=== PATIENT | male | born 1945 | race Two or more races ===

== ENCOUNTER 2018-06-26 16:51 | Inpatient (IN) | payer MEDICAID ==
[~2018-06-26] VITALS: Ht 172.7 cm; Wt 49.4 kg
[2018-06-26] VITALS (9 sets, daily range): BP systolic 102–166; BP diastolic 65–111
--- NOTE | 2018-06-26 16:51 | NUR ---
MARIE 41 FROM HOME C/O CHOKING WHILE EATING PIZZA, SPO2=78% ON RA, TO ER BED 8, HOOKED TO RECENTERER, CHANGED TO RT RENETTA AT BEDSIDE, DR PERALTA AT BEDSIDE.
[2018-06-26 17:17] LABS: BASOPHILS % (AUTO) 0.6 % (0.0-2.0); EOSINOPHILS % (AUTO) 3.1 % (0.0-6.0); HEMATOCRIT 39 % (39-51); LYMPHOCYTES # (AUTO) 1.2 /CMM (0.8-4.8); LYMPHOCYTES % (AUTO) 20.1 % (20.0-44.0); MEAN CORPUSCULAR HGB CONC 33 g/dl (31.0-36.0); MEAN CORPUSCULAR VOLUME 92 fL (80-96); MONOCYTES # (AUTO) 0.3 /CMM (0.1-1.30); MONOCYTES % (AUTO) 5.6 % (2.0-12.0); NEUTROPHILS # (AUTO) 4.1 /CMM (1.8-8.9); NEUTROPHILS % (AUTO) 70.6 % (43.0-81.0); PLATELET COUNT (AUTO) 234 /CMM (150-450); RED BLOOD CELL COUNT(AUTO) 4.28 MIL/uL (4.5-6.0); WHITE BLOOD COUNT (AUTO) 5.8 K/uL (4.3-11.0)
[2018-06-26 17:29] LABS: CALCIUM, SERUM 9.2 mg/dL (8.5-10.1); CREATININE 0.7 mg/dL (0.6-1.3); POTASSIUM 3.5 mmol/L (3.5-5.1)
[2018-06-26] MEDS ORDERED: IPRATROPIUM NEB FS 0.5 MG/2.5 ML AMPUL.NEB NEB ONE (17:30)
[2018-06-26] MEDS ORDERED: methylPREDNISolone SOD SUCC 125 MG/2ML VIAL IV ONE (17:30)
[2018-06-26] MEDS ORDERED: ONDANSETRON HCL/PF 4 MG/2 ML VIAL IVP ONE (17:30)
[2018-06-26] MEDS ORDERED: ALBUTEROL FS 2.5 MG/3 ML VIAL.NEB CONTNEB ONE (17:30)
[2018-06-26] MEDS ORDERED: IV NS 0.9% 1,000 ML BAG IV ONE (17:30)
[2018-06-26] MEDS ORDERED: IPRATROPIUM NEB FS 0.5 MG/2.5 ML AMPUL.NEB ONE (17:31)
[2018-06-26] MEDS ORDERED: ALBUTEROL FS 2.5 MG/3 ML VIAL.NEB ONE (17:31)
[2018-06-26] MEDS ORDERED: ONDANSETRON HCL/PF 4 MG/2 ML VIAL ONE (17:32)
[2018-06-26] MEDS ORDERED: methylPREDNISolone SOD SUCC 125 MG/2ML VIAL ONE (17:32)
[2018-06-26 17:34] LABS: ALBUMIN 3.6 g/dL (3.4-5.0); BILIRUBIN,DIRECT 0.1 mg/dL (0.0-0.2); BILIRUBIN,TOTAL 0.4 mg/dL (0.2-1.0); TOTAL PROTEIN, SERUM 7.9 g/dL (6.4-8.2)
--- NOTE | 2018-06-26 17:55 | NUR ---
ONGOING BREATHING TX
--- NOTE | 2018-06-26 18:07 | NUR ---
PT KEPT ON REMOVING BREATHING TREATMENT. DESATURATING AT 50'S, MADE MD AWARE.
--- NOTE | 2018-06-26 18:09 | NUR ---
INTUBATION TIME OUT DONE.
--- NOTE | 2018-06-26 18:10 | NUR ---
ETOMIDATE 20MG AND Succinylcholine 100MG GIVEN IVP
--- NOTE | 2018-06-26 18:12 | NUR ---
PT FOUND ON BREATHING TX @ 6LPM. MD AND RN AT BEDSIDE. PT SHOWED SIGNS OF SEVERE RESP DISTRESS. PT ORALLY INTUBATED VIA ETT SZ 7.0 SECURED AT 22CM @ THE LIP. COLORMETRIC CO2 COLOR CHANGE CONFIRMED. BREATH SOUNDS ARE CLEAR BILATERALLY. PT IMMEDIATELY TRANSPORTED TO CT SCAN. PT PLACED ON [facility] VENT ON NOTED SETTINGS PER MD ORDERS. ABG TO BE TAKEN WITHIN 30 MINUTES OF BEING ON VENT. WILL CONTINUE TO MONITOR.
--- NOTE | 2018-06-26 18:12 | NUR ---
RT AT BEDSIDE BAGGING
--- NOTE | 2018-06-26 18:13 | NUR ---
PT INTUBATED BY DR PERALTA, 23@ THE LIP AND 7.0 ETT.
--- NOTE | 2018-06-26 18:14 | NUR ---
ETT MOVED TO 22 @ THE LIP BP 151/100 HR 130 O2 SAT 75%
[2018-06-26] MEDS ORDERED: IOHEXOL-350 100 ML VIAL IV ONE (18:19)
[2018-06-26] MEDS ORDERED: IV NS 0.9% 250 ML IV ONE (18:19)
[2018-06-26] MEDS ORDERED: CT SWABBABLE VALVE TRANS SET 1 EA INFUS.SET MC ONE (18:19)
[2018-06-26] MEDS ORDERED: PROPOFOL 100 ML ONE (18:20)
--- NOTE | 2018-06-26 18:30 | NUR ---
PT WHEELED OUT FOR CT PULMO ANGIOGRAM, RT AT BEDSIDE
[2018-06-26] MEDS ORDERED: PROPOFOL 10MG/ML 50ML 50 ML IV PRN (19:00)
[2018-06-26 19:05] LABS: APPEARANCE,URINE Clear (CLEAR); BILIRUBIN,URINE Negative (NEGATIVE); BLOOD, URINE Small Ery/uL (NEGATIVE); COLOR,URINE Yellow (YELLOW); KETONES,URINE Trace (NEGATIVE); LEUKOCYTE ESTERASE ,URINE Negative (NEGATIVE); NITRITE, URINE Negative (NEGATIVE); PROTEIN,URINE 30 mg/dl (NEGATIVE); UGLUCOSE Negative (NEGATIVE); UROBILINOGEN,URINE 0.2 EU/dL (0.2)
[2018-06-26 19:20] LABS: BACTERIA,URINE None seen /HPF (None Seen); SQUAMOUS EPITHELIAL CELL,UR Few /HPF (None Seen); WBC,URINE 0-2 /HPF (0-3)
--- NOTE | 2018-06-26 19:44 | NUR ---
PHYSICS TUTOR: SABINO BRENNER [phone]
--- NOTE | 2018-06-26 19:51 | NUR ---
REPORT GIVEN TO ELIANA WATERMAN FOR CHUY
[2018-06-26] MEDS ORDERED: ETOMIDATE 2 MG/ML VIAL IV ONE (20:01)
[2018-06-26] MEDS ORDERED: SUCCINYLCHOLINE CHLORIDE 20 MG/ML VIAL IV ONE (20:01)
--- NOTE | 2018-06-26 20:23 | NUR ---
REPORT GIVEN TO COLUMBA RIOJAS FOR CHUY
--- NOTE | 2018-06-26 20:25 | NUR ---
RECEIVED REPORT FROM ELIANA MARLOW RN FOR CONTINUITY OF CARE. AWAITING PT ARRIVAL.
--- NOTE | 2018-06-26 20:45 | NUR ---
RECEIVED PT IN NO ACUTE DISTRESS IN BED. PT IS OPENING EYES AND MOVING UPPER EXTREMITIES. PT IS ON PROPOFOL BUT STILL TRYING TO REACH FOR ETT. WILL TITRATE PROPOFOL AND REQUEST MAX DOSE OF 100MCG FROM NETWORK RELATIONS CONSULTANT PHYSICIAN. PT IS INTUBATED WITH ETT 7.0/22 AT THE LIP. PT IS ON MECHANICAL VENT AND TOLERATING VENT SETTING AT AC20, TV 350, FIO2 100%, PEEP 0. PT IS ON TELE WITH SR ON THE MONITOR. PT HAS F/C THAT IS CLEAN DRY INTACT AND PATENT WITH YELLOW URINE DRAINING. PT IS ON RESTRAINTS WITH POSITIVE PULSES ON ALL FOUR EXTREMITIES. PT HAS LFA 20G WITH PROPOFOL @ 40MCG AND LWRIST 20G THAT IS CLEAN DRY INTACT AND PATENT WITH SALINE FLUSH. BED IN LOW LOCK POSITION WITH RIALS UP X 2. CALL LIGHT WITHIN REACH AND ALL SAFETY MEASURES ENSURED AND CARRIED OUT. WILL CONTINUE TO MONITOR PT.
--- NOTE | 2018-06-26 20:50 | NUR ---
NOTIFIED DR. FARR ABOUT PT INCREASE IN AGITATION AND REQUESTED INCREASE IN PROPOFOL TO MAX 100 MCG. RECEIVED ORDERS TO INCREASE PORPOFOL TO MAX 100MCG NEEDED. READ BACK ORDERS PERFORMED AND CARRIED OUT.
[2018-06-26] MEDS: PROPOFOL 100 ML IV PRN ×2 (20:54→23:07)
[2018-06-26] MEDS ORDERED: Z GUARD REMEDY 2 OZ OINT TP PRN (21:00)
[2018-06-26] MEDS ORDERED: PROPOFOL 1,000 MG/100 ML BOTTLE IV ONE (21:00)
[2018-06-26] MEDS ORDERED: ONDANSETRON HCL/PF 4 MG/2 ML VIAL IVP PRN (21:00)
[2018-06-26] MEDS ORDERED: ACETAMINOPHEN 650 MG/SUPP.RECT RC PRN (21:00)
[2018-06-26] MEDS ORDERED: HYDROMORPHONE 1 MG/1 ML DISP.SYRIN IV PRN (21:00)
[2018-06-26 21:19] LABS: ABG BASE EXCESS -5.3 mmol/L; ABG OXYGEN SATURATION 99.3 % (92.0-98.5); ABG PCO2 37.5 mmHg (35.0-45.0); ABG PH 7.342 (7.350-7.450); ABG PO2 463.6 mmHg (75.0-100.0); AaDO2 211.9 mmHg; COHb 0.2 % (0.5-1.5); MetHb 0.5 % (0.0-1.5); O2Hb 98.6 % (94.0-97.0); PEEP,BG 5 cm H2O; SITE, ABG Left Radial; VT, ABG 350 mL
[2018-06-26] MEDS ORDERED: CEFTRIAXONE 1 G VIAL ONE (21:22)
[2018-06-26] MEDS: IV D5/0.45 NACL 1,000 ML IV PRN (21:24)
[2018-06-26] MEDS: CEFTRIAXONE 1 G in IV D5W 50 ML IV SCH (21:24)
[2018-06-26] MEDS: ENOXAPARIN SODIUM 40 MG/0.4 ML DISP.SYRIN SQ SCH (21:25)
--- NOTE | 2018-06-26 22:00 | NUR ---
PROPOFOL INCREASED TO 60 MCG DUE TO PT AGITATION WITH INCREASED RESPIRATIONS TO 30 AND PT TRYING TO REACH FOR ETT WHILE ON RESTRAINTS.
[2018-06-26] MEDS: METRONIDAZOLE 500MG/ NS 100ML 500 MG in PREMIX 1 EA IV SCH (23:18)
[2018-06-27] VITALS (47 sets, daily range): BP systolic 84–161; BP diastolic 54–99
[2018-06-27] MEDS: PROPOFOL 100 ML IV PRN ×3 (04:11→17:24)
[2018-06-27 04:33] LABS: HEMATOCRIT 34 % (39-51); HEMOGLOBIN 11.5 g/dL (13.5-17.5); LYMPHOCYTES # (AUTO) 0.6 /CMM (0.8-4.8); LYMPHOCYTES % (AUTO) 8.6 % (20.0-44.0); MEAN CORPUSCULAR HGB CONC 33 g/dl (31.0-36.0); MEAN CORPUSCULAR VOLUME 92 fL (80-96); MONOCYTES # (AUTO) 0.1 /CMM (0.1-1.30); MONOCYTES % (AUTO) 0.8 % (2.0-12.0); NEUTROPHILS # (AUTO) 6.6 /CMM (1.8-8.9); NEUTROPHILS % (AUTO) 90.6 % (43.0-81.0); PLATELET COUNT (AUTO) 194 /CMM (150-450); RED BLOOD CELL COUNT(AUTO) 3.76 MIL/uL (4.5-6.0); WHITE BLOOD COUNT (AUTO) 7.3 K/uL (4.3-11.0)
[2018-06-27 04:46] LABS: CALCIUM, SERUM 8.3 mg/dL (8.5-10.1); MAGNESIUM 1.7 mg/dL (1.8-2.4); POTASSIUM 4.1 mmol/L (3.5-5.1)
[2018-06-27 04:54] LABS: THYROID STIMULATING HORMONE 0.358 uIU/mL (0.358-3.74)
[2018-06-27] MEDS: METRONIDAZOLE 500MG/ NS 100ML 500 MG in PREMIX 1 EA IV SCH ×3 (05:12→12:22)
--- NOTE | 2018-06-27 07:24 | NUR ---
PT REMAINS IN NO ACUTE DISTRESS IN BED. PT DID NOT HAVE ANY SIGNIFICANT CHANGE IN CONDITION DURING SHIFT. PT TOLERATED VENT SETTING WELL. ALL NEEDS MET, ALL ORDERS CARRIED OUT. WILL ENDORSE CARE TO AM RN FOR CONTINUITY OF CARE.
--- NOTE | 2018-06-27 07:30 | NUR ---
INITIAL: RECEIVED PT IN NO ACUTE DISTRESS IN BED. PT ON VENTILATOR # 7 ET-TUBE @ 22 BY THE LIP. PT CALM VITAL SIGNS STABLE WILL TITRATE PROPOFOL AND REQUEST FOR MAX DOSE OF 100MCG FROM CITY AUDITOR PHYSICIAN WILL BE FOLLOWED UP ON. PT IS ON MECHANICAL VENT AND TOLERATING VENT SETTING AT AC20, TV 350, FIO2 100%, PEEP +5. PT IS ON TELE WITH SB (53) ON THE MONITOR. PT HAS F/C THAT IS CLEAN DRY INTACT AND PATENT WITH YELLOW URINE DRAINING. PT IS ON RESTRAINTS WITH POSITIVE PULSES ON ALL FOUR EXTREMITIES. PT HAS LFA 20G WITH PROPOFOL @ 55 MCG AND LEFT WRIST 20G THAT IS CLEAN DRY INTACT AND PATENT WITH SALINE FLUSH. BED IN LOW LOCK POSITION WITH RIALS UP X 2. CALL LIGHT WITHIN REACH AND ALL SAFETY MEASURES ENSURED AND CARRIED OUT. WILL CONTINUE TO MONITOR PT.
[2018-06-27] MEDS: PANTOPRAZOLE 40 MG VIAL IV SCH (09:08)
[2018-06-27] MEDS: IV D5/0.45 NACL 1,000 ML IV PRN (10:09)
[2018-06-27] MEDS: Magnesium 1GM/D5W 100ML PREMIX 100 ML IV SCH ×2 (10:09→10:57)
--- NOTE | 2018-06-27 11:48 | NUR ---
RT NOTE PT MECHANICALLY VENTILATED VIA 7.0 ETT 22 CM AT LIP. CUFF INFLATED. ETT MIDLINE AND SECURE. VENTILATOR SETTINGS PRESCRIBED. ALARMS SET PER PROTOCOL AND AUDIBLE. VENT PLUGGED IN TO RED OUTLET. AMBU BAG AT BED SIDE. NO DISTRESS NOTED AT MOMENT. Addendum: 06/27/18 at 1150 by NEIL KERN RT Amended: Links added.
--- NOTE | 2018-06-27 18:20 | NUR ---
CLOSING PT REMAINS IN NO ACUTE DISTRESS IN BED. PT DID NOT HAVE ANY SIGNIFICANT CHANGE IN CONDITION DURING SHIFT. PT TOLERATED VENT SETTING WELL.ABLE TO WEAN PROPAFOL ALL NEEDS MET, ALL ORDERS CARRIED OUT. WILL ENDORSE CARE TO PM RN FOR CONTINUITY OF CARE.
--- NOTE | 2018-06-27 19:00 | NUR ---
RECEIVED PT IN NO ACUTE DISTRESS IN BED. PT IS SEDATED. PT IS INTUBATED WITH ETT 7.0/22 AT THE LIP. PT IS ON MECHANICAL VENT AND TOLERATING VENT SETTING AT AC 16, TV 350, FIO2 40%, PEEP 5. PT IS ON TELE WITH SB ON THE MONITOR. PT HAS F/C THAT IS CLEAN DRY INTACT AND PATENT WITH YELLOW URINE DRAINING. PT IS ON RESTRAINTS WITH POSITIVE PULSES ON ALL FOUR EXTREMITIES. PT HAS LFA 20G WITH PROPOFOL @ 40MCG AND LWRIST 20G THAT IS CLEAN DRY INTACT AND PATENT WITH SALINE FLUSH. BED IN LOW LOCK POSITION WITH RIALS UP X 2. CALL LIGHT WITHIN REACH AND ALL SAFETY MEASURES ENSURED AND CARRIED OUT. WILL CONTINUE TO MONITOR PT.
[2018-06-27] MEDS: CEFTRIAXONE 1 G in IV D5W 50 ML IV SCH (21:45)
[2018-06-27] MEDS: ENOXAPARIN SODIUM 40 MG/0.4 ML DISP.SYRIN SQ SCH (21:46)
[2018-06-28] VITALS (55 sets, daily range): BP systolic 80–176; BP diastolic 49–89
[2018-06-28] MEDS: METRONIDAZOLE 500MG/ NS 100ML 500 MG in PREMIX 1 EA IV SCH ×4 (00:09→17:42)
[2018-06-28] MEDS: PROPOFOL 100 ML IV PRN ×2 (00:27→11:23)
[2018-06-28] MEDS: IV D5/0.45 NACL 1,000 ML IV PRN ×2 (04:01→21:15)
[2018-06-28 05:46] LABS: BASOPHILS % (AUTO) 0.2 % (0.0-2.0); EOSINOPHILS % (AUTO) 0.9 % (0.0-6.0); HEMATOCRIT 35 % (39-51); HEMOGLOBIN 11.7 g/dL (13.5-17.5); LYMPHOCYTES # (AUTO) 1.7 /CMM (0.8-4.8); LYMPHOCYTES % (AUTO) 19.6 % (20.0-44.0); MEAN CORPUSCULAR HGB CONC 33 g/dl (31.0-36.0); MEAN CORPUSCULAR VOLUME 93 fL (80-96); MONOCYTES # (AUTO) 0.6 /CMM (0.1-1.30); MONOCYTES % (AUTO) 6.7 % (2.0-12.0); NEUTROPHILS # (AUTO) 6.3 /CMM (1.8-8.9); NEUTROPHILS % (AUTO) 72.6 % (43.0-81.0); PLATELET COUNT (AUTO) 184 /CMM (150-450); WHITE BLOOD COUNT (AUTO) 8.7 K/uL (4.3-11.0)
[2018-06-28 05:58] LABS: CALCIUM, SERUM 8.2 mg/dL (8.5-10.1); CREATININE 0.8 mg/dL (0.6-1.3); MAGNESIUM 2.2 mg/dL (1.8-2.4); PHOSPHORUS 2.5 mg/dL (2.5-4.9); POTASSIUM 3.9 mmol/L (3.5-5.1)
--- NOTE | 2018-06-28 07:59 | NUR ---
INITIAL ASL INTERPRETER NOTE RCVD PT SEDATED ON DIPRIVAN, INTUBATED 7.0 22 AT LIP LINE. BILATERAL SOFT WRIST RESTRAINTS IN PLACE. CIRCULATION CHECKS DONE. SB ON MONITOR. INMAN TO GRAVITY DRAINING YELLOW URINE. IV SITES C/D/I/PATENT, NO S/O INFILTRATION/PHLEBITIS OBSERVED, IVF AND DIPRIVAN INFUSING ORDERED. PT APPEARS TO FOLLOW COMMANDS WILL CONTINUE TO ASSESS DURING SEDATION VACATION. WILL CONTINUE TO MONITOR PT FOR SAFETY AND COMFORT. BED IN LOW AND LOCKED POSITION. CALL LIGHT WITHIN REACH. HEAD OF BED ELEVATED.
[2018-06-28] MEDS: PANTOPRAZOLE 40 MG VIAL IV SCH (08:06)
[2018-06-28 08:30] LABS: ABG BASE EXCESS -2.1 mmol/L; ABG OXYGEN SATURATION 98.5 % (92.0-98.5); ABG PCO2 37.7 mmHg (35.0-45.0); ABG PH 7.393 (7.350-7.450); ABG PO2 161.3 mmHg (75.0-100.0); AaDO2 80.5 mmHg; COHb 0.3 % (0.5-1.5); MetHb 0.7 % (0.0-1.5); O2Hb 97.5 % (94.0-97.0); PEEP,BG 5 cm H2O; SITE, ABG Right Radial; VENT MODE, BG AC 16 350 40% +5; VT, ABG 350 mL
--- NOTE | 2018-06-28 09:04 | NUR ---
SEDATION VACATION NOTE PT ABLE TO ACKNOWLEDGE INFORMATION AND FOLLOW SIMPLE COMMANDS SUCH SQUEEZE HAND AND OPEN EYES TO COMMAND. PT APPEARS COMFORTABLE WITH LIGHT SEDATION, WILL CONTINUE TO MONITOR.
--- NOTE | 2018-06-28 12:37 | NUR ---
TOUR DRIVER NOTE DR. DAVIS IN UNIT UPDATED ON PT'S CONDITION. RECOMMENDED TO START WEANING. RT CALLED PT TO BE PLACED ON CPAP MODE PSV 10 PEEP 5 AND GET ABG IN 2 HRS. WILL CONTINUE TO MONITOR PT. PT'S DAUGHTER WAS CALLED TO UPDATE ON PT'S CONDITION AND TO HAVE HER SPEAK TO PT REGARDING WEANING PROCESS.
--- NOTE | 2018-06-28 12:55 | NUR ---
PT PLACED ON CPAP MODE PER DR. ANWAR. [place] IN 2 HOURS. Addendum: 06/28/18 at 1303 by LUANA BRYANT RT Amended: Links added.
[2018-06-28 14:34] LABS: ABG BASE EXCESS -2.2 mmol/L; ABG OXYGEN SATURATION 98.5 % (92.0-98.5); ABG PCO2 35.5 mmHg (35.0-45.0); ABG PH 7.409 (7.350-7.450); ABG PO2 174.1 mmHg (75.0-100.0); AaDO2 70.3 mmHg; COHb 0.3 % (0.5-1.5); MetHb 0.6 % (0.0-1.5); O2Hb 97.6 % (94.0-97.0); PEEP,BG 5 cm H2O; SITE, ABG Right Radial; VENT MODE, BG CPAP
--- NOTE | 2018-06-28 14:51 | NUR ---
PT EXTUBATED PER DR. DAVIS ORDERS. RN BETO AT BEDSIDE DURING EXTUBATION. PT HAS SEMI-PRODUCTIVE COUGH, SATURATING 100% ON 3LPM NASAL CANNULA. NO RESP. DISTRESS NOTED. NO STRIDOR PRESENT.
[2018-06-28] MEDS: AZITHROMYCIN 500 MG in IV D5W 250 ML IV SCH (16:22)
[2018-06-28] MEDS: hydrALAZINE HCL IV 20 MG VIAL IV PRN (17:41)
--- NOTE | 2018-06-28 18:36 | NUR ---
CUSTOMS COMPLIANCE MANAGER NOTE PT REMAINS STABLE, NON-VERBAL (BASELINE) EXTUBATED, ON RA TOLERATING WELL. SR ON MONITOR. INMAN TO GRAVITY DRAINING CLEAR, GREEN TINGED URINE. IV SITES REMAIN C/D/I/PATENT. NO S/O INFILTRATION/PHLEBITIS OBSERVED UPON FLUSHING. PT'S CARE WILL BE ENDORSED TO DEVELOPMENT CHEMIST RN FOR CONTINUITY OF CARE. BED IN LOW AND LOCKED POSITION. CALL LIGHT WITHIN REACH. HEAD OF BED ELEVATED. EARLIER THIS PM PT'S SBP OVER 160 ADAM, LIQUEFACTION PLANT OPERATOR NOTIFIED RCVD ORDER TO GIVE HYDRALAZINE IVP. THIS WAS ADMINISTERED ORDERED WITH IMPROVEMENT ON PT'S SBP. PER PT'S DAUGHTER PT DOES NOT TAKE ANY BP MEDICATIONS AT HOME.
--- NOTE | 2018-06-28 20:00 | NUR ---
Received patient awake non verbal follows simple commands.Respiration even and unlabored.Cough at times but unable to expectorate phlegm.Suctioned secretions PRN.O2 2L NC on but sometimes remove it.No respiratory distress noted.SR per monitor.Remain on NPO status pending swallow eval. With IVF infusing well and site intact.FC to gravity drainage with moderate yellow urine.Turned and repositioned.Safety precaution observed with call light within easy reach.Continue monitoring.
[2018-06-28] MEDS: CEFTRIAXONE 1 G in IV D5W 50 ML IV SCH (21:00)
[2018-06-28] MEDS: ENOXAPARIN SODIUM 40 MG/0.4 ML DISP.SYRIN SQ SCH (21:01)
[2018-06-29] VITALS (25 sets, daily range): BP systolic 119–161; BP diastolic 61–92
--- NOTE | 2018-06-29 | NUR ---
Patient resting .VS stable.SB 50's.Remains NPO with IVF infusing well.Denies pain.No BM noted. Moderate urine output.Continue monitoring.
[2018-06-29 04:46] LABS: BASOPHILS % (AUTO) 0.5 % (0.0-2.0); EOSINOPHILS % (AUTO) 0.8 % (0.0-6.0); HEMATOCRIT 37 % (39-51); HEMOGLOBIN 12.2 g/dL (13.5-17.5); LYMPHOCYTES # (AUTO) 1.2 /CMM (0.8-4.8); LYMPHOCYTES % (AUTO) 16.8 % (20.0-44.0); MEAN CORPUSCULAR HGB CONC 34 g/dl (31.0-36.0); MEAN CORPUSCULAR VOLUME 91 fL (80-96); MONOCYTES # (AUTO) 0.4 /CMM (0.1-1.30); MONOCYTES % (AUTO) 5.5 % (2.0-12.0); NEUTROPHILS # (AUTO) 5.6 /CMM (1.8-8.9); NEUTROPHILS % (AUTO) 76.4 % (43.0-81.0); PLATELET COUNT (AUTO) 193 /CMM (150-450); WHITE BLOOD COUNT (AUTO) 7.3 K/uL (4.3-11.0)
[2018-06-29 05:01] LABS: CALCIUM, SERUM 7.9 mg/dL (8.5-10.1); CREATININE 0.7 mg/dL (0.6-1.3); POTASSIUM 3.1 mmol/L (3.5-5.1)
[2018-06-29] MEDS: METRONIDAZOLE 500MG/ NS 100ML 500 MG in PREMIX 1 EA IV SCH ×5 (06:03→17:06)
--- NOTE | 2018-06-29 06:35 | NUR ---
AM care done.Oral care done.Resting in bed appears comfortable.No significant change noted during the shift.Will endorse to day shift RN for continuity of care.
--- NOTE | 2018-06-29 07:30 | NUR ---
STEM ROLLER OR CRUSHER OPERATOR INITIAL NOTES: Received pt from nightshift RN in stable condition. Pt is alert however nonverbal. Pt able to make his needs known through writing aid at bedside and gestures. He denies any pain at this time. No SOB noted. Pt sating at 96% on 2L VIA NC. IVs to left fa and wrist noted to be C/D/I. No redness or signs of infiltration noted upon flushing. Bed in low locked position, side rails up c2, call light within reach, bed alarm on. Will continue to monitor.
[2018-06-29] MEDS: PANTOPRAZOLE 40 MG VIAL IV SCH (08:21)
[2018-06-29] MEDS: POTASSIUM CL. PREMIX PERIPHER. 50 ML IV SCH ×4 (09:22→12:45)
[2018-06-29] MEDS: IV D5/0.45 NACL 1,000 ML IV PRN (09:22)
[2018-06-29] MEDS: hydrALAZINE HCL IV 20 MG VIAL IV PRN (11:47)
--- NOTE | 2018-06-29 13:06 | NUR ---
COUNTY DEMONSTRATOR NOTES: MD ROUNDING (DR. ADAMS)/ SWALLOW EVAL 1250: DR. ADAMS AT BEDSIDE AND UPDATED ON PT'S CURRENT CONDITION. MD MADE AWARE THAT PT HAS YET TO BE ASSESSED BY SPEECH THERAPIST. PER MD "DO A NURSING SWALLOW EVAL WITH ICE CHIPS, IF PT IS ABLE TO TOLERATE IT, THEN ADVANCE HIS DIET" 1300: EVAL COMPLETED BY CHARGE NURSE. PT ABLE TO TOLERATE ICE CHIPS WITH NO RESPIRATORY DISTRESS OR SIGNS OF ASPIRATION. DIET ADVANCED TO PUREE
[2018-06-29] MEDS: AZITHROMYCIN 500 MG in IV D5W 250 ML IV SCH (15:34)
--- NOTE | 2018-06-29 18:50 | NUR ---
COMBAT SYSTEMS OPERATORWILDLIFE PROTECTOR NOTES PT TRANSFERRED TO TELE ROOM 327-1 VIA [facility]. REPORT CALLED AND GIVEN TO TRACIE THE RECEIVING RN. ALL BELONGINGS AND MEDICATIONS TAKEN WITH PT. VSS. PERIPHERAL IVS REMAIN PATENT AND INTACT.
--- NOTE | 2018-06-29 18:50 | NUR ---
RECEIVED PT FROM ICU (REPORT GIVEN BY AFSATU) . A/O X2, NON-VERBAL. VS ARE STABLE AND WITH IN NORMAL RANGE, 2 IV ASSESS PRESENT, FLUSHING WELL. NO SKIN ISSUES, PT HAS R SITED WEAKNESS, ASPIRATION PRECAUTIONS IN PLACE. WILL ENDORSE TO NEXT SHIFT FOR CHUY.
--- NOTE | 2018-06-29 20:00 | NUR ---
RN NOTES PATIENT IS ALERT AND ORIENTED TO SELF ONLY, NO TAIWANESE, NON-VERBAL, POINTS TO TAIWANESE ALPHABETS AND MAORI CHARACTERS AND GESTURES TO COMMUNICATE. ASPIRATION PRECAUTION, KEPT HOB ELEVATED, DRINKS WATER USING SPOON AND WITH CAUTION.
[2018-06-29] MEDS: CEFTRIAXONE 1 G in IV D5W 50 ML IV SCH (21:01)
[2018-06-29] MEDS: ENOXAPARIN SODIUM 40 MG/0.4 ML DISP.SYRIN SQ SCH (21:12)
[2018-06-30] MEDS: METRONIDAZOLE 500MG/ NS 100ML 500 MG in PREMIX 1 EA IV SCH ×5 (00:41→23:01)
[2018-06-30 00:51] VITALS: BP 146/87
[2018-06-30] MEDS: IV D5/0.45 NACL 1,000 ML IV PRN (06:11)
--- NOTE | 2018-06-30 06:17 | NUR ---
RN NOTES PATIENT HAD RAPID RESPONSE DUE TO DESATURATION SPO2 AT 5LPM VIA NC 81%, WITH SBP OF 80, BG OF 80 MG/DL, PATIENT IS ALERT AND ORIENTED X3, NO LOSS OF CONSCIOUSNESS, DENIES PAIN, PERIPHERAL IV DISLODGED AND UNABLE TO RESTART DUE TO POOR VEIN VISIBILITY. PATIENT RESPONDED WELL WITH NS BOLUS OF 500 CC AND NON REBREATHER MASK AT 10 LPM, PER POC, PROCEED WITH COLONOSCOPY, WILL DECIDE IF PATIENT CAN GO BACK TO [place] OR GO TO A HIGHER LEVEL OF CARE SINCE PATIENT CHANGED POLST FROM DNR TO FULL CODE. Addendum: 06/30/18 at 0621 by JITENDRA VERDUZCO RN PLEASE DISREGARD NOTES ABOVE, NOT FOR PATIENT
--- NOTE | 2018-06-30 06:21 | NUR ---
PATIENT IS ALERT AND ORIENTED X2, NON-VERBAL, NO CHANGE OF CONDITION, INMAN CATHETER DRAINING WELL, ALL IV ABX GIVEN.
[2018-06-30 07:06] LABS: BASOPHILS % (AUTO) 0.3 % (0.0-2.0); EOSINOPHILS % (AUTO) 1.4 % (0.0-6.0); HEMATOCRIT 39 % (39-51); HEMOGLOBIN 13.2 g/dL (13.5-17.5); LYMPHOCYTES # (AUTO) 1.1 /CMM (0.8-4.8); LYMPHOCYTES % (AUTO) 16.7 % (20.0-44.0); MEAN CORPUSCULAR HGB CONC 34 g/dl (31.0-36.0); MEAN CORPUSCULAR VOLUME 90 fL (80-96); MONOCYTES # (AUTO) 0.4 /CMM (0.1-1.30); MONOCYTES % (AUTO) 6.1 % (2.0-12.0); NEUTROPHILS # (AUTO) 5.1 /CMM (1.8-8.9); NEUTROPHILS % (AUTO) 75.5 % (43.0-81.0); PLATELET COUNT (AUTO) 214 /CMM (150-450); RED BLOOD CELL COUNT(AUTO) 4.32 MIL/uL (4.5-6.0); WHITE BLOOD COUNT (AUTO) 6.8 K/uL (4.3-11.0)
[2018-06-30 07:22] LABS: CALCIUM, SERUM 8.3 mg/dL (8.5-10.1); CREATININE 0.8 mg/dL (0.6-1.3); MAGNESIUM 1.8 mg/dL (1.8-2.4); PHOSPHORUS 2.3 mg/dL (2.5-4.9); POTASSIUM 3.3 mmol/L (3.5-5.1)
[2018-06-30 08:00] VITALS: BP 146/79
--- NOTE | 2018-06-30 08:30 | NUR ---
MS RN ASSUMED CARE ASSUMED CARE OVER PT. PT IS ALERT AND ORIENTED X1 AND NON-VERBAL. USES THAI AND LITHUANIAN CHARACTERS TO TRANSLATE. NO ACUTE DISTRESS NOTED AT THIS TIME. BREATHING IS EVEN AND UNLABORED ON ROOM AIR. PT HAS A LEFT WRIST #20G IV THAT IT INFUSING D5 1/2 NS @ 75ML/HR WITHOUT REDNESS OR SWELLING AND A LEFT FA #20G THAT IS SALINE LOCKED WITHOUT REDNESS OR SWELLING. INMAN CATHETER NOTED TO BE DRAINING DARK YELLOW, CLEAR URINE. ASPIRATION PRECAUTIONS MAINTAINED, PT IS PENDING SWALLOW EVAL. ALL NEEDS ATTENDED TO. BED IS LOCKED AND IN LOWEST POSITION, SIDE RAILS UP X3, BED ALARM ON, CALL LIGHT AND POSSESSIONS WITHIN REACH.
[2018-06-30] MEDS ORDERED: POTASSIUM CHLORIDE 20 MEQ POWDER PACKET NG SCH (09:30)
[2018-06-30] MEDS: PANTOPRAZOLE 40 MG VIAL IV SCH (09:56)
[2018-06-30] MEDS ORDERED: POTASSIUM PHOSPHATE MM 5 MMOL in IV D5W 100 ML IV SCH (10:30)
[2018-06-30] MEDS: Potassium Phosphate meq 11 MEQ in IV D5W 100 ML IV SCH ×2 (11:29→14:46)
--- NOTE | 2018-06-30 12:30 | NUR ---
MS RN NOTE LEFT FA PERIPHERAL IV FOUND TO BE LEAKING AND PAINFUL WHEN FLUSHED. REMOVED WITH CATHETER TIP INTACT. NEW IV STARTED AT THE LEFT UPPER FA #24G AND IS PATENT, CLEAN, DRY AND INTACT. LEFT WRIST IV STILL INTACT.
[2018-06-30 16:00] VITALS: BP 145/76
--- NOTE | 2018-06-30 16:15 | NUR ---
MS RN NOTE SPOKE WITH RIM FIRE PRIMING TOOL SETTER REGARDING AZITHROMYCIN IV. PER TECH, THE PHARMACIST IS CURRENTLY IN A CODE RIGHT NOW BUT THEY WILL FOLLOW UP SHORTLY AND SEND UP THE MEDICATION.
[2018-06-30] MEDS ORDERED: BARIUM SULFATE 148 GM SUSP.RECON PO ONE (16:18)
[2018-06-30] MEDS ORDERED: BARIUM SULFATE 240 ML ORAL.SUSP PO ONE (16:18)
--- NOTE | 2018-06-30 17:15 | NUR ---
MS RN NOTE FLAGYL AND AZITHROMYCIN IV STILL UNAVAILABLE, PER PHARMACY THEY ARE ABLE TO SEND AZITHROMYCIN UP SHORTLY. WAITING FOR ARRIVAL.
[2018-06-30] MEDS: AZITHROMYCIN 500 MG in IV D5W 250 ML IV SCH (17:24)
--- NOTE | 2018-06-30 18:30 | NUR ---
MS RN NOTE PER JONATHAN HE WILL SEND UP FLAGYL IV SHORTLY.
--- NOTE | 2018-06-30 18:48 | NUR ---
MS RN CLOSING NOTE PT IN BED, SLEEPING AND EASILY AROUSABLE. PT IS ALERT AND ORIENTED X1 AND NON-VERBAL. USES PASHTO AND CANADIAN CHARACTERS TO TRANSLATE. NO ACUTE DISTRESS NOTED AT THIS TIME. BREATHING IS EVEN AND UNLABORED ON ROOM AIR. PT HAS A LEFT WRIST #20G IV THAT IT INFUSING D5 1/2 NS @ 75ML/HR WITHOUT REDNESS OR SWELLING AND A LEFT FA #24G THAT IS SALINE LOCKED WITHOUT REDNESS OR SWELLING. INMAN CATHETER NOTED TO BE DRAINING DARK YELLOW, CLEAR URINE. ASPIRATION PRECAUTIONS AND NPO STATUS MAINTAINED. ADLS PROVIDED AND PT TURNED AND REPOSITION Q2H FOR THE DURATION OF THE SHIFT. ALL NEEDS ATTENDED TO. BED IS LOCKED AND IN LOWEST POSITION, SIDE RAILS UP X3, BED ALARM ON, CALL LIGHT AND POSSESSIONS WITHIN REACH. WILL ENDORSE TO LIFE INSURANCE SALES NURSE FOR CONTINUITY OF CARE.
--- NOTE | 2018-06-30 19:00 | NUR ---
RN MS OPENING NOTES RECEIVED PATIENT IN BED AWAKE ALERT AND ORIENTED X 2 ,NON VERBAL HOWEVER ABLE TO COMMUNICATE VIA LETTER BOARD. ABLE TO MAKE NEEDS KNOWN VIA BOARD AND POINTING, RESPIRATIONS EVEN AND UNLABORED WITH EQUAL RISE AND FALL OF CHEST, DENIES ANY PAIN OR DISCOMFORT AT THIS TIME, PATIENT IS NPO STATUS AND AWARE , ASPIRATION PRECAUTIONS RENDERED, INMAN CATHETER IN TACT AND DRAINING WELL, URINE YELLOW, CLEAR, IV SITE TO LEFT FA #24 INTACT AND PATENT AND LEFT WRIST #20 INTACT AND PATENT NO REDNESS, NO INFILTRATION PRESENT IVF RUNNING ORDERED. SAFETY PRECAUTIONS IN PLACE,LOW BED AND LOCKED, BED ALARM IN PLACE ,ORIENTED TO STAFF AND CALL LIGHT AND KEPT WITHIN REACH, REPOSITIONING OFFERED, ALL NEEDS ATTENDED AT THIS TIME, REMAINS COMFORTABLE WILL CONTINUE TO MONITOR AND ADDRESS NEEDS.
[2018-06-30 20:00] VITALS: BP 154/82
[2018-06-30] MEDS: ENOXAPARIN SODIUM 40 MG/0.4 ML DISP.SYRIN SQ SCH (21:27)
[2018-06-30] MEDS: CEFTRIAXONE 1 G in IV D5W 50 ML IV SCH (21:27)
[2018-07-01] MEDS: METRONIDAZOLE 500MG/ NS 100ML 500 MG in PREMIX 1 EA IV SCH ×3 (05:15→17:09)
--- NOTE | 2018-07-01 06:55 | NUR ---
RN MS CLOSING NOTES PATIENT IN BED AWAKE ALERT AND ORIENTED X 2 ,NON VERBAL HOWEVER ABLE TO COMMUNICATE VIA LETTER BOARD. ABLE TO MAKE NEEDS KNOWN VIA BOARD AND POINTING, RESPIRATIONS EVEN AND UNLABORED WITH EQUAL RISE AND FALL OF CHEST, DENIES ANY PAIN OR DISCOMFORT AT THIS TIME, PATIENT IS NPO STATUS AND AWARE , ASPIRATION PRECAUTIONS RENDERED, INMAN CATHETER IN TACT AND DRAINING WELL, URINE YELLOW, CLEAR 900ML OUTPUT, IV SITE TO LEFT FA #24 INTACT AND PATENT AND LEFT WRIST #20 INTACT AND PATENT NO REDNESS, NO INFILTRATION PRESENT IVF RUNNING ORDERED. SAFETY PRECAUTIONS IN PLACE,LOW BED AND LOCKED, BED ALARM IN PLACE , CALL LIGHTKEPT WITHIN REACH, REPOSITIONING OFFERED, ALL NEEDS ATTENDED AT THIS TIME, REMAINS COMFORTABLE WILL CONTINUE TO MONITOR AND ADDRESS NEED AND ENDORSE TO NEXT SHIFT.
--- NOTE | 2018-07-01 07:30 | NUR ---
RN OPENING NOTES PT AWAKE AND RESTING IN BED. PT NONVERBAL, BUT ABLE TO MAKE NEEDS KNOWN. PT HAS A INMAN CATHETER INTACT AND DRAINING WELL. PT HAS A LEFT FA #24 AND LEFT WRIST #20 RUNNING D51/2NS @75ML/HR, PT TOLERATING WELL. SAFETY PRECAUTIONS IN PLACE, BED IN LOWEST LOCKED POSITION, X2 SIDE RAILS UP AND CALL LIGHT WITHIN REACH. WILL CONTINUE TO MONITOR.
[2018-07-01 08:00] VITALS: BP 146/77
[2018-07-01 08:18] LABS: BASOPHILS % (AUTO) 0.4 % (0.0-2.0); EOSINOPHILS % (AUTO) 5.3 % (0.0-6.0); HEMATOCRIT 37 % (39-51); HEMOGLOBIN 12.6 g/dL (13.5-17.5); LYMPHOCYTES # (AUTO) 1.1 /CMM (0.8-4.8); LYMPHOCYTES % (AUTO) 18.1 % (20.0-44.0); MEAN CORPUSCULAR HGB CONC 34 g/dl (31.0-36.0); MEAN CORPUSCULAR VOLUME 89 fL (80-96); MONOCYTES # (AUTO) 0.5 /CMM (0.1-1.30); MONOCYTES % (AUTO) 7.9 % (2.0-12.0); NEUTROPHILS # (AUTO) 4.1 /CMM (1.8-8.9); NEUTROPHILS % (AUTO) 68.3 % (43.0-81.0); PLATELET COUNT (AUTO) 203 /CMM (150-450)
[2018-07-01 08:31] LABS: CREATININE 0.7 mg/dL (0.6-1.3); MAGNESIUM 1.7 mg/dL (1.8-2.4); PHOSPHORUS 2.8 mg/dL (2.5-4.9); POTASSIUM 3.2 mmol/L (3.5-5.1)
[2018-07-01] MEDS: IV D5/0.45 NACL 1,000 ML IV PRN (08:35)
[2018-07-01] MEDS: PANTOPRAZOLE 40 MG VIAL IV SCH (08:37)
[2018-07-01] MEDS: POTASSIUM CL. PREMIX PERIPHER. 50 ML IV SCH ×4 (09:57→13:47)
[2018-07-01] MEDS ORDERED: Magnesium 1GM/D5W 100ML PREMIX 100 ML IV SCH (10:00)
[2018-07-01 16:00] VITALS: BP 147/59
[2018-07-01] MEDS: AZITHROMYCIN 500 MG in IV D5W 250 ML IV SCH (16:03)
--- NOTE | 2018-07-01 19:00 | NUR ---
RN MS OPENING NOTES RECEIVED PATIENT IN BED AWAKE ALERT AND ORIENTED X 2 ,NON VERBAL HOWEVER ABLE TO COMMUNICATE VIA LETTER BOARD. ABLE TO MAKE NEEDS KNOWN VIA BOARD AND POINTING, RESPIRATIONS EVEN AND UNLABORED WITH EQUAL RISE AND FALL OF CHEST, DENIES ANY PAIN OR DISCOMFORT AT THIS TIME, PATIENT IS NPO STATUS AND AWARE. PLAN FOR PEG IN AM , ASPIRATION PRECAUTIONS RENDERED,HEAD OF BED ELEVATED, INMAN CATHETER INTACT AND DRAINING WELL, URINE YELLOW/MENDOZA, CLEAR, IV SITE TO LEFT FA #24 INTACT AND PATENT AND LEFT WRIST #20 INTACT AND PATENT NO REDNESS, NO INFILTRATION PRESENT IVF RUNNING ORDERED. SAFETY PRECAUTIONS IN PLACE,LOW BED AND LOCKED, BED ALARM IN PLACE ,ORIENTED TO STAFF AND CALL LIGHT AND KEPT WITHIN REACH, REPOSITIONING OFFERED, ALL NEEDS ATTENDED AT THIS TIME, REMAINS COMFORTABLE WILL CONTINUE TO MONITOR AND ADDRESS NEEDS.
--- NOTE | 2018-07-01 19:25 | NUR ---
RN CLOSING NOTES PT AWAKE AND RESTING IN BED. PT NONVERBAL, BUT ABLE TO MAKE NEEDS KNOWN USING BOARD. PT HAS A INMAN CATHETER INTACT AND DRAINING WELL. PT HAS A LEFT FA #24 AND LEFT WRIST #20 RUNNING D51/2NS @75ML/HR, PT TOLERATING WELL. PT AWAITING PEG PLACEMENT. CONSENTS SIGNED. SAFETY PRECAUTIONS IN PLACE, BED IN LOWEST LOCKED POSITION, X2 SIDE RAILS UP AND CALL LIGHT WITHIN REACH. WILL ENDORSE TO AERIAL APPLICATOR PILOT NURSE FOR CONTINUITY OF CARE.
[2018-07-01 20:00] VITALS: BP 135/71
[2018-07-01] MEDS: ENOXAPARIN SODIUM 40 MG/0.4 ML DISP.SYRIN SQ SCH (21:00)
[2018-07-01] MEDS: CEFTRIAXONE 1 G in IV D5W 50 ML IV SCH (21:41)
--- NOTE | 2018-07-01 21:47 | NUR ---
RN MS NOTES PATIENT SCHEDULED FOR PEG PLACEMENT IN AM. HAS LOVENOX SCHEDULED MADE ADAM AWARE NEW ORDER TO HOLD DOSE.
[2018-07-02] MEDS: METRONIDAZOLE 500MG/ NS 100ML 500 MG in PREMIX 1 EA IV SCH ×4 (00:42→17:15)
[2018-07-02] MEDS: IV D5/0.45 NACL 1,000 ML IV PRN (05:15)
--- NOTE | 2018-07-02 06:30 | NUR ---
RN MS CLOSING NOTES PATIENT IN BED SLEEPING BUT EASILY AROUSABLE, RESPIRATIONS EVEN AND UNLABORED WITH EQUAL RISE AND FALL OF CHEST, DENIES PAIN , APPEARS TO BE COMFORTABLE, NPO STATUS FOR PEG PLACEMENT, ASPIRATION PRECAUTIONS RENDERED, IVF RUNNING ORDERED IV SITE TO LEFT FA#24 AND LEFT WRIST #20 INTACT AND PATENT NO REDNESS, NO INFILTRATION PRESENT, ALL ANTIBIOTICS GIVEN ORDERED, HELD LOVENOX PER MD ORDER PATIENT WILL HAVE PROCEDURE, INMAN CATHETER INTACT AND DRAINING WELL, URINE YELLOW/MENDOZA/CLEAR COLOR. UPON ASSESSING SKIN EARLIER IN SHIFT NOTED WITH BILATERAL BUTTOCKS REDNESS,MEPILEX APPLIED AND PATIENT WAS FREQUENTLY REPOSITIONED TO OFFLOAD AREA,PICTURES TAKEN , WOUND CARE CONSULT PENDING. ALL NEEDS WERE ATTENDED THROUGHOUT SHIFT, NO CHANGES, WILL CONTINUE TO MONITOR AND ENDORSE TO NEXT SHIFT.
--- NOTE | 2018-07-02 07:31 | NUR ---
RN OPENING NOTES PT WAS RECEIVED IN BED AT LOWEST AND LOCKED POSITION, A/O X1-2 NONVERBAL CENTRAL AFRICAN SPEAKING, BREATHING EVEN AND UNLABORED ON RA, NO S/S OF PAIN OR DISTRESS CURRENTLY NOTED, IV IS PATENT AND INTACT, NOTED TO HAVE INMAN PLACE, GOING FOR PEG PLACEMENT TODAY, SAFETY PRECAUTIONS IN PLACE, CALL LIGHT WITHIN REACH, WILL MONITOR ACCORDINGLY.
--- NOTE | 2018-07-02 07:43 | NUR ---
RN NOTE PT AT THIS TIME WAS TAKEN DOWN BY SURGERY FOR PEG PLACEMENT
[2018-07-02 08:00] VITALS: BP 137/67
[2018-07-02 08:05] LABS: BASOPHILS % (AUTO) 0.4 % (0.0-2.0); EOSINOPHILS % (AUTO) 5.5 % (0.0-6.0); HEMATOCRIT 36 % (39-51); HEMOGLOBIN 12.2 g/dL (13.5-17.5); MEAN CORPUSCULAR HGB CONC 34 g/dl (31.0-36.0); MEAN CORPUSCULAR VOLUME 90 fL (80-96); MONOCYTES # (AUTO) 0.5 /CMM (0.1-1.30); MONOCYTES % (AUTO) 8.7 % (2.0-12.0); NEUTROPHILS # (AUTO) 4.1 /CMM (1.8-8.9); NEUTROPHILS % (AUTO) 68.4 % (43.0-81.0); PLATELET COUNT (AUTO) 216 /CMM (150-450); RED BLOOD CELL COUNT(AUTO) 4.02 MIL/uL (4.5-6.0)
[2018-07-02 08:22] LABS: CALCIUM, SERUM 8.1 mg/dL (8.5-10.1); CREATININE 0.7 mg/dL (0.6-1.3); MAGNESIUM 1.8 mg/dL (1.8-2.4); PHOSPHORUS 2.8 mg/dL (2.5-4.9); POTASSIUM 3.4 mmol/L (3.5-5.1)
--- NOTE | 2018-07-02 09:00 | NUR ---
RN NOTE PT ARRIVED BACK TO THE FLOOR AT THIS TIME, AWAKE AND ALERT, VS STABLE, WILL MONITOR ACCORDINGLY
[2018-07-02 09:22] VITALS: BP 138/80
[2018-07-02] MEDS: PANTOPRAZOLE 40 MG VIAL IV SCH (09:28)
[2018-07-02 09:37] VITALS: BP 142/78
[2018-07-02] MEDS: POTASSIUM CL. PREMIX PERIPHER. 50 ML IV SCH ×2 (11:47→12:47)
--- NOTE | 2018-07-02 12:25 | NUR ---
WOUND CARE CONSULT: PT PRESENTS WITH MOISTURE ASSOCIATED REDNESS TO BILATERAL LOWER BUTTOCKS AND VERY BONY SACRAL AREA. PT IS VERY THIN AND BONY. PT NOTED TO HAVE RT SIDED WEAKNESS. ALL SKIN PROTECTION RECOMMENDATIONS DISCUSSED WITH NURSING STAFF. WILL SEE PRN. CURRENT WENDY SCORE IS 13. MD IN AGREEMENT WITH PLAN OF CARE. Addendum: 07/02/18 at 1228 by NILS QUINTANA WNDNU Amended: Links added.
[2018-07-02] MEDS: AZITHROMYCIN 500 MG in IV D5W 250 ML IV SCH (15:40)
[2018-07-02 16:00] VITALS: BP 134/74
--- NOTE | 2018-07-02 18:41 | NUR ---
RN CLOSING NOTES PT IN BED AT LOWEST AND LOCKED POSITION, A/O X1-2 NONVERBAL TAJIK SPEAKING, BREATHING EVEN AND UNLABORED ON RA, NO S/S OF PAIN OR DISTRESS, IV SITES ARE PATENT AND INTACT, PEG PLACED TODAY, SAFETY PRECAUTIONS IN PLACE, CALL LIGHT WITHIN REACH, WILL ENDORSE TO JUICE STANDARDIZER RN FOR CHUY.
--- NOTE | 2018-07-02 19:30 | NUR ---
RECEIVED PATIENT IN BED AWAKE. AO X 2-3, NONVERBAL. NO ACUTE DISTRESS NOTED. DENIES PAIN AT THIS TIME. IV SITE PATENT, INTACT; IVF INFUSING ORDERED. INMAN CATH PATENT, INTACT; DRAINING CLEAR URINE. GT PATENT, INTACT; IN PLACE VIA AUSCULTATION. SAFETY REMINDERS GIVEN. ON LOW BED WITH BILATERAL UPPER SIDE RAILS UP. CALL DOHERTY WITHIN EASY REACH. WILL CONTINUE TO MONITOR.
[2018-07-02 20:00] VITALS: BP 126/68
[2018-07-02] MEDS: CEFTRIAXONE 1 G in IV D5W 50 ML IV SCH (21:17)
[2018-07-02] MEDS: ENOXAPARIN SODIUM 40 MG/0.4 ML DISP.SYRIN SQ SCH (21:20)
[2018-07-03] MEDS: METRONIDAZOLE 500MG/ NS 100ML 500 MG in PREMIX 1 EA IV SCH ×4 (00:01→18:09)
--- NOTE | 2018-07-03 06:00 | NUR ---
PATIENT ASLEEP, EASILY AROUSABLE. RESPIRATIONS EVEN. NO SIGNS OF PAIN NOTED. DUE MEDS GIVEN WITH NO ASE NOTED. IVF INFUSING ORDERED. NEEDS ATTENDED. KEPT CLEAN, DRY, AND COMFORTABLE. SAFETY PRECAUTIONS AND COMFORT MEASURES IN PLACE. WILL GIVE REPORT TO DAY SHIFT FOR CONTINUITY OF CARE.
[2018-07-03] MEDS: IV D5/0.45 NACL 1,000 ML IV PRN ×2 (06:13→21:10)
[2018-07-03 07:28] LABS: BASOPHILS % (AUTO) 0.3 % (0.0-2.0); EOSINOPHILS % (AUTO) 4.2 % (0.0-6.0); HEMATOCRIT 38 % (39-51); HEMOGLOBIN 12.9 g/dL (13.5-17.5); LYMPHOCYTES # (AUTO) 1.2 /CMM (0.8-4.8); LYMPHOCYTES % (AUTO) 19.7 % (20.0-44.0); MEAN CORPUSCULAR HGB CONC 34 g/dl (31.0-36.0); MEAN CORPUSCULAR VOLUME 91 fL (80-96); MONOCYTES # (AUTO) 0.5 /CMM (0.1-1.30); NEUTROPHILS % (AUTO) 67.8 % (43.0-81.0); PLATELET COUNT (AUTO) 217 /CMM (150-450); RED BLOOD CELL COUNT(AUTO) 4.23 MIL/uL (4.5-6.0); WHITE BLOOD COUNT (AUTO) 5.9 K/uL (4.3-11.0)
[2018-07-03 07:53] LABS: CALCIUM, SERUM 8.1 mg/dL (8.5-10.1); CREATININE 0.8 mg/dL (0.6-1.3); MAGNESIUM 1.8 mg/dL (1.8-2.4); PHOSPHORUS 2.7 mg/dL (2.5-4.9); POTASSIUM 3.6 mmol/L (3.5-5.1)
[2018-07-03 08:00] VITALS: BP 144/70
--- NOTE | 2018-07-03 08:00 | NUR ---
RN NOTES RECEIVED PATIENT IN BED AWAKE. A/O X 2-3, NONVERBAL BUT ABLE TO COMMUNICATE THROUGH POINTING LETTERS AT COMMUNICATION BOARD.ON ROOM AIR. NOT ON ACUTE DISTRESS. NO SOB NOTED. DENIES PAIN AT THIS TIME. IV SITE O THE RHAND G 22: INTACT AND PATENT ON FLUSHING, WITH D5 1/2 NS RUNNING AT 75CC/HR. GT IN PLACE ON AUSCULTATION, PATENT ON FLUSHING. CLAMPED AT THIS TIME. INMAN CATH IN PLACE, PATENT, INTACT, DRAINING TO CLEAR URINE VIA GRAVITY. SAFETY PRECAUTIONS OBSERVED AND MAINTAINED. BED PLACE LOW AND LOCKED. BILATERAL UPPER SIDE RAILS UP. CALL LIGHT WITHIN EASY REACH. WILL ANTICIPATE NEEDS AND CONTINUE TO MONITOR.
[2018-07-03] MEDS: PANTOPRAZOLE 40 MG VIAL IV SCH (08:54)
[2018-07-03] MEDS ORDERED: JEVITY 1.2 CAL 1,000 ML BOTTLE GT PRN ×2 (11:00→12:30)
--- NOTE | 2018-07-03 14:14 | NUR ---
RN NOTES PATIENT STARTED WITH GT FEEDING WITH JEVITY 1.2 AT 10CC/HR WITH INCREMENTS OF 10 CC EVERY 8 HOURS TO REACH GOAL OF 55CC/HR.
--- NOTE | 2018-07-03 15:40 | NUR ---
JAZMÍN and briefcase sewer Tiara Finnegan met with pt's daughter José bedside in pt's room. Pt. is in process of his green card application and recently applied for medi-sindy. Pt. has a peg and will need supplies at home. [facility] was inquiring about IHSS. JAZMÍN informed her that she will call [facility] to inquire if they will accept IHSS application referral with a case number. Pt's case number is [id number]. JAZMÍN contacted [facility] and spoke with uHssein who informed SW that pt. will need to have his medi-sindy number which would start with a 9, for him to apply for IHSS. JAZMÍN met with [facility] and updated her with the conversation JAZMÍN had with Hussein at [facility].
[2018-07-03 16:00] VITALS: BP_SYST 132; BP_SYST 154; BP_DIAS 68; BP_DIAS 73
[2018-07-03] MEDS: AZITHROMYCIN 500 MG in IV D5W 250 ML IV SCH (16:45)
--- NOTE | 2018-07-03 19:30 | NUR ---
RECEIVED PATIENT IN BED AWAKE. AO X 2-3, NONVERBAL. NO ACUTE DISTRESS NOTED. DENIES PAIN AT THIS TIME. IV SITE PATENT, INTACT; IVF INFUSING ORDERED. INMAN CATH PATENT, INTACT; DRAINING CLEAR URINE. GT PATENT, INTACT; IN PLACE VIA AUSCULTATION. GTF ONGOING ORDERED. NO RESIDUAL ASPIRATED. HOB RAISED. SAFETY REMINDERS GIVEN. ON LOW BED WITH BILATERAL UPPER SIDE RAILS UP. CALL DOHERTY WITHIN EASY REACH. WILL CONTINUE TO MONITOR.
--- NOTE | 2018-07-03 19:35 | NUR ---
RN NOTES PATIENT ENDORSED FOR CONTINUITY OF CARE. NO SIGNIFICANT CHANGES WITHIN THE SHIFT. ALL NURSING NEEDS ATTENDED AND MET. SAFETY MEASURES AND ASPIRATION PRECAUTION IN PLACE AT ALL TIMES. CALL LIGHT WITHIN REACH AT ALL TIMES
[2018-07-03 20:00] VITALS: BP 146/96
[2018-07-03] MEDS: CEFTRIAXONE 1 G in IV D5W 50 ML IV SCH (21:04)
[2018-07-03] MEDS: ENOXAPARIN SODIUM 40 MG/0.4 ML DISP.SYRIN SQ SCH (21:05)
[2018-07-04] MEDS: METRONIDAZOLE 500MG/ NS 100ML 500 MG in PREMIX 1 EA IV SCH ×3 (00:31→13:38)
--- NOTE | 2018-07-04 07:35 | NUR ---
RECEIVED PATIENT IN BED AWAKE. AO X 2-3, NONVERBAL. NO ACUTE DISTRESS NOTED. IV SITE PATENT, INTACT; IVF INFUSING ORDERED. INMAN CATH PATENT, INTACT. G-TUBE PATENT, INTACT, NO RESIDUAL NOTED. GTF ONGOING ORDERED. HOB RAISED.SAFETY MEASURES IN PLACE. CALL LIGHT WITHIN EASY REACH. WILL CONTINUE TO MONITOR.
[2018-07-04 08:00] VITALS: BP 119/70
[2018-07-04 08:22] VITALS: BP 119/70
[2018-07-04] MEDS: PANTOPRAZOLE 40 MG VIAL IV SCH (09:51)
[2018-07-04] MEDS ORDERED: ASPI-1169 PO (10:36)
[2018-07-04] MEDS ORDERED: LEVO750T21 PO (10:36)
[2018-07-04 16:00] VITALS: BP 144/73
--- NOTE | 2018-07-04 17:50 | NUR ---
PATIENT CLEARED BY MD FOR D/C TO HOME. PATIENT A/O X2-3 NON-VERBAL, ABLE TO WALK WITH WALKER AND ASSISTANCE. SKIN INTACT.PATIENT TO BE NPO, ON G-TUBE FEEDING BY GRAVITY AT HOME. PATIENT'S DAUGHTER RECEIVED ALL SUPPLIES TODAY BEFORE DISCHARGE. EDUCATION FOR G-TUBE FEEDING AND G-TUBE CARE AT HOME PROVIDED TO PT DAUGHTER. DAUGHTER VERBALIZED UNDERSTANDING. NEW PRESCRIPTION GIVEN. D/C INSTRUCTIONS AND VALUABLE FORM SIGHED AND GIVEN TO PATIENT'S DAUGHTER.IV LINES REMOVED , ID WRIST BAND REMOVED. PATIENT SAFELY TRANSFERRED TO HIS DAUGHTER CAR VIA HIS OWN WHEELCHAIR. Addendum: 07/14/18 at 2026 by TRACIE KELLER RN PICTURES ARE NOT TAKEN , REFUSED BY PATIENT'S DAUGHTER
== END 2018-07-04 18:34 | disposition home health service (06) | DRG 208 ==
LOC: ER 16:53 → ICU 19:55 → TELE 06-29 18:16 → MED 06-30 10:43
PROVIDERS: ADMIT Hospitalist; ATTEND Nurse Practitioner Acute Care
PROC: 5A1945Z Respiratory Ventilation, 24-96 Consecutive Hours (ICD-10-PCS; principal; 2018-06-26)
PROC: 0BH17EZ Insertion of Endotracheal Airway into Trachea, Via Natural or Artificial Opening (ICD-10-PCS; principal; 2018-06-26)
PROC: 0DH63UZ Insertion of Feeding Device into Stomach, Percutaneous Approach (ICD-10-PCS; 2018-07-02)
DX: J96.01 Acute respiratory failure with hypoxia (principal); J69.0 Pneumonitis due to inhalation of food and vomit; N17.0 Acute kidney failure with tubular necrosis; E43 Unspecified severe protein-calorie malnutrition; I69.351 Hemiplegia and hemiparesis following cerebral infarction affecting right dominant side; Z68.1 Body mass index [BMI] 19.9 or less, adult; J98.11 Atelectasis; E86.0 Dehydration; R13.10 Dysphagia, unspecified; I69.321 Dysphasia following cerebral infarction; J44.9 Chronic obstructive pulmonary disease, unspecified; F17.200 Nicotine dependence, unspecified, uncomplicated; I10 Essential (primary) hypertension
CPT/HCPCS: 31720; 36415; 36600; 43246; 71045-TC; 74230-TC; 80048-TC; 80061-TC; 80076-TC; 81000-TC; 82803-TC; 83690-TC; 83735-TC; 83880; 84100-TC; 84443-TC; 84484-TC; 85025-TC; 85610-TC; 85730-TC; 87081-TC; 87086-TC; 92526; 92611-TC; 94003-TC; 94799-TC; 97112-TC; 97116-TC; 97530-TC; A4216; A4624; C9113; G0378; J0330; J0360; J0456; J0696; J1170; J1650; J2405; J2704; J2930; J3475; J3480; J3490; J7030; J7050; J7060; Q9967

== ENCOUNTER 2018-10-18 09:21 | Emergency (ER) | payer MEDICAID ==
[~2018-10-18] VITALS: Ht 152.4 cm; Wt 52.6 kg
[~2018-10-18 09:21] MED LIST: ASPI-1169 PO; LEVO750T21 PO
[2018-10-18 09:33] VITALS: BP 120/62
== END 2018-10-18 11:23 | disposition home or self-care (01) ==
LOC: ER 09:24
DX: R13.10 Dysphagia, unspecified (principal); I10 Essential (primary) hypertension; Z86.73 Personal history of transient ischemic attack (TIA), and cerebral infarction without residual deficits; Z79.82 Long term (current) use of aspirin
CPT/HCPCS: 71045-TC

== ENCOUNTER 2019-05-07 15:56 | Emergency (ER) | payer MEDICAID ==
[~2019-05-07] VITALS: Ht 152.4 cm; Wt 53.1 kg
[2019-05-07 16:00] VITALS: BP 139/85
[2019-05-07] MEDS ORDERED: LIDOCAINE MPF 1%-EPI 1:200,000 30 ML VIAL IJ ONE (16:42)
== END 2019-05-07 18:13 | disposition home or self-care (01) ==
LOC: ER 15:57
DX: L02.416 Cutaneous abscess of left lower limb (principal); I10 Essential (primary) hypertension; Z86.73 Personal history of transient ischemic attack (TIA), and cerebral infarction without residual deficits; Z79.82 Long term (current) use of aspirin
CPT/HCPCS: 10060; 99283; A6403; A6407; J3490

== ENCOUNTER 2019-05-10 13:21 | Emergency (ER) | payer MEDICAID ==
[~2019-05-10] VITALS: Ht 165.1 cm; Wt 53.1 kg
[2019-05-10 13:30] VITALS: BP 117/71
--- NOTE | 2019-05-10 14:07 | NUR ---
unable to depart patient from [facility]
== END 2019-05-10 14:28 | disposition home or self-care (01) ==
LOC: ER 13:23
DX: L02.416 Cutaneous abscess of left lower limb (principal); I10 Essential (primary) hypertension; Z79.899 Other long term (current) drug therapy; Z86.73 Personal history of transient ischemic attack (TIA), and cerebral infarction without residual deficits; Z79.82 Long term (current) use of aspirin
CPT/HCPCS: 99281; A6407

== ENCOUNTER 2020-03-03 18:06 | Emergency (ER) | payer MEDICAID ==
[~2020-03-03] VITALS: Ht 160 cm; Wt 51.3 kg
--- NOTE | 2020-03-03 18:45 | NUR ---
[place] FROM HOME TO ER BED 7. AAOX2. NOT IN RESP DISTRESS. BROUGHT IN ON WHELLCHAIR. BROUGHT IN FOR CONCERNS REGARDING RESULT OF CT SCAN. PER DAUGHTER, SHE RECEIVED THE RESULT OF THE CT WHICH STATES THAT PT'S VEINS ARE NARROWING AND SHE IS CONCERN THAT HER FATHER MIGHT HAVE ANOTHER STROKE. PT'S DAUGHTER DOES NOT REPORT ANYTHING UNUSUAL WITH PT'S MENTATION. 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 VSS. WAS AT THE BEDSIDE FOR EVAL. ORDERS RECEIVED NOTD AND CARRIED OUT. IV LINE ESTABLISHED ON LFA 20G. BLOOD DRAWN AND GIVEN TO SCAGLIOLA MECHANIC. PT IS ON MONITOR
[2020-03-03 19:44] LABS: CALCIUM, SERUM 9.3 mg/dL (8.5-10.1); CARBON DIOXIDE 26 mmol/L (21-32); CHLORIDE 100 mmol/L (98-107); CREATININE 0.8 mg/dL (0.6-1.3); GLUCOSE 149 mg/dL (74-106); POTASSIUM 4.1 mmol/L (3.5-5.1); SODIUM SERUM 134 mmol/L (136-145); UREA NITROGEN, BLOOD 16 mg/dL (7-18)
[2020-03-03 19:49] LABS: ALANINE AMINOTRANSFERASE 28 U/L (12-78); ALBUMIN 3.5 g/dL (3.4-5.0); ALKALINE PHOSPHATASE 102 U/L (46-116); ASPARTATE AMINOTRANSFERASE 25 U/L (15-37); BILIRUBIN,DIRECT 0.1 mg/dL (0.0-0.2); BILIRUBIN,TOTAL 0.4 mg/dL (0.2-1.0); LIPASE 121 U/L (73-393); TOTAL PROTEIN, SERUM 8.5 g/dL (6.4-8.2)
[2020-03-03 20:09] LABS: BASOPHILS % (AUTO) 0.4 % (0.0-2.0); HEMATOCRIT 36 % (39-51); LYMPHOCYTES # (AUTO) 1.6 /CMM (0.8-4.8); LYMPHOCYTES % (AUTO) 21.6 % (20.0-44.0); MEAN CORPUSCULAR HGB CONC 33 g/dl (31.0-36.0); MEAN CORPUSCULAR VOLUME 90 fL (80-96); MONOCYTES # (AUTO) 0.6 /CMM (0.1-1.30); MONOCYTES % (AUTO) 7.6 % (2.0-12.0); NEUTROPHILS # (AUTO) 4.8 /CMM (1.8-8.9); NEUTROPHILS % (AUTO) 65.4 % (43.0-81.0); PLATELET COUNT (AUTO) 231 /CMM (150-450); RED BLOOD CELL COUNT(AUTO) 4.04 MIL/uL (4.5-6.0); WHITE BLOOD COUNT (AUTO) 7.3 K/uL (4.3-11.0)
--- NOTE | 2020-03-03 20:36 | NUR ---
Patient discharged to home in stable condition. Written and verbal after care instructions given. Patient verbalizes understanding of instruction.IV removed. Catheter intact and site benign. Pressure and 4x4 applied to site. No bleeding noted. Pt left with his daughter on wheelchair
[2020-03-03 20:38] VITALS: BP 136/75
== END 2020-03-03 20:38 | disposition home or self-care (01) ==
LOC: ER 18:15
DX: G83.89 Other specified paralytic syndromes (principal); I10 Essential (primary) hypertension; Z86.73 Personal history of transient ischemic attack (TIA), and cerebral infarction without residual deficits; Z79.899 Other long term (current) drug therapy; Z79.82 Long term (current) use of aspirin
CPT/HCPCS: 36415; 71045-TC; 80048-TC; 80076-TC; 83690-TC; 84484-TC; 85025-TC

== ENCOUNTER 2020-11-02 15:50 | Inpatient (IN) | payer MEDICAID ==
[~2020-11-02] VITALS: Ht 160 cm; Wt 42.6 kg
--- NOTE | 2020-11-02 15:58 | NUR ---
C/O PAIN IN G TUBE SITE X 5 DAYS. PATIENT BROUGHT IN BY SON, BREATHING EVEN AND UNLABORED, NO SOB NOTED. PATIENT'S A/OX3, EMIRATI, ABLE TO COMMUNICATE VIA GESTURES.
--- NOTE | 2020-11-02 16:00 | NUR ---
DR. CLAROS AT BEDSIDE FOR EVAL.
[2020-11-02] MEDS ORDERED: IV NS 0.9% 1,000 ML IV ONE (16:30)
--- NOTE | 2020-11-02 16:30 | NUR ---
IV LINE ESTABLISHED, BLOOD DRAWN AND SENT TO LAB.
[2020-11-02 16:35] LABS: BASOPHILS % (AUTO) 0.2 % (0.0-2.0); EOSINOPHILS % (AUTO) 4.9 % (0.0-6.0); HEMATOCRIT 38 % (39-51); HEMOGLOBIN 12.4 g/dL (13.5-17.5); LYMPHOCYTES % (AUTO) 25.2 % (20.0-44.0); MEAN CORPUSCULAR HGB CONC 33 g/dl (31.0-36.0); MEAN CORPUSCULAR VOLUME 97 fL (80-96); MONOCYTES # (AUTO) 0.4 /CMM (0.1-1.30); MONOCYTES % (AUTO) 8.8 % (2.0-12.0); NEUTROPHILS # (AUTO) 2.5 /CMM (1.8-8.9); NEUTROPHILS % (AUTO) 60.9 % (43.0-81.0); PLATELET COUNT (AUTO) 179 /CMM (150-450); RED BLOOD CELL COUNT(AUTO) 3.94 MIL/uL (4.5-6.0); WHITE BLOOD COUNT (AUTO) 4.1 K/uL (4.3-11.0)
[2020-11-02 16:48] LABS: ALBUMIN 3.4 g/dL (3.4-5.0); BILIRUBIN,DIRECT 0.1 mg/dL (0.0-0.2); BILIRUBIN,TOTAL 0.5 mg/dL (0.2-1.0); CALCIUM, SERUM 8.7 mg/dL (8.5-10.1); CREATININE 0.8 mg/dL (0.6-1.3); POTASSIUM 4.4 mmol/L (3.5-5.1); TOTAL PROTEIN, SERUM 7.6 g/dL (6.4-8.2)
[2020-11-02] MEDS ORDERED: IOHEXOL-300 100 ML VIAL IV ONE (16:55)
[2020-11-02] MEDS ORDERED: IV NS 0.9% 250 ML IV ONE (16:55)
[2020-11-02] MEDS ORDERED: ATOR80TA PO (17:16)
--- NOTE | 2020-11-02 18:03 | NUR ---
NURSING SUP GAVE M/S BED 314.
[2020-11-02] MEDS ORDERED: MINERAL OIL 133 ML (PYXIS) 1 EA ENEMA RC ONE (18:21)
[2020-11-02] MEDS ORDERED: BISACODYL SUPP (10 MG) 10 MG/SUPP.RECT SUPP.RECT RC ONE ×2 (18:21→18:30)
[2020-11-02] MEDS ORDERED: NA PHOS,M-B/NA PHOS,DI-BA 1 EA ENEMA RC ONE (18:30)
--- NOTE | 2020-11-02 18:30 | NUR ---
UA SENT TO LAB.
--- NOTE | 2020-11-02 18:35 | NUR ---
REPORT GIVEN TO OSMANY WATERMAN.
[2020-11-02 18:40] LABS: BILIRUBIN,URINE Negative (NEGATIVE); COLOR,URINE YELLOW (YELLOW); LEUKOCYTE ESTERASE ,URINE Negative (NEGATIVE); NITRITE, URINE Negative (NEGATIVE); PH,URINE 7.5 (5.0-8.0); PROTEIN,URINE Negative (NEGATIVE); UGLUCOSE Negative (NEGATIVE); UROBILINOGEN,URINE 0.2 EU/dL (0.2)
[2020-11-02 18:52] LABS: BACTERIA,URINE Rare /HPF (None Seen); SQUAMOUS EPITHELIAL CELL,UR 0-2 /HPF (None Seen); WBC,URINE 0-2 /HPF (0-3)
--- NOTE | 2020-11-02 19:05 | NUR ---
PATIENT TRANSFERRED TO ROOM 314-1 VIA ACLS PROTOCOL. ENDORSED TO AIMEE WATERMAN. NO BM AT THIS TIME.
--- NOTE | 2020-11-02 19:37 | NUR ---
MS RN OPENING NOTE PATIENT A/OX3; MAKES NEEDS KNOWN WITH GESTURES. PATIENT ON ROOM AIR TOLERATING WELL WITH NO SOB. NO S/S OF DISCOMFORT AT THIS TIME. PATIENT NOTED WITH DISLODGED GTUBE. GTUBE SITE CLOSED AND APPLIED DRESSING ON SITE. LAC #18G; PATENT AND INTACT. SAFETY MEASURES IN PLACE: BED IN LOWEST LOCKED POSITION, SIDE RAILS UPX2, CALL LIGHT WITHIN EASY REACH, BED ALARMS ON. WILL CONTINUE PLAN OF CARE.
[2020-11-02 20:00] VITALS: BP 151/71
[2020-11-02] MEDS ORDERED: NA PHOS,M-B/NA PHOS,DI-BA 1 EA ENEMA RC PRN (21:30)
[2020-11-02] MEDS ORDERED: ONDANSETRON HCL/PF 4 MG/2 ML VIAL IVP PRN (21:30)
[2020-11-02] MEDS ORDERED: ZOLPIDEM TARTRATE 5 MG TABLET PO PRN (21:30)
[2020-11-02] MEDS ORDERED: Potassium Chloride 20 MEQ in IV LR 1000 ML 1,000 ML IV PRN (21:30)
[2020-11-02] MEDS ORDERED: Z GUARD REMEDY 2 OZ OINT TP PRN (21:30)
[2020-11-02] MEDS ORDERED: ACETAMINOPHEN 650 MG/SUPP.RECT RC PRN (21:30)
--- NOTE | 2020-11-02 21:55 | NUR ---
MS RN NOTE SPOKE TO PATIENT'S DAUGHTER SABINO AND STATE PATIENT TAKES FIBERSOURCE HN NUTRIENT 150ML CAN 6 TIMES DAILY VIA GT. PATIENT'S PHARMACY: DIAL PHARMACY. PATIENT'S LAST FEEDING WAS TODAY AT 12 PM. SABINO STATED PATIENT'S GT DISLODGED AT HOME.
[2020-11-02] MEDS: ATORVASTATIN 40 MG TABLET PO SCH (22:00)
[2020-11-02] MEDS ORDERED: NUTR150016 GT (22:06)
[2020-11-02] MEDS: ENOXAPARIN SODIUM 40 MG/0.4 ML DISP.SYRIN SQ SCH (22:13)
--- NOTE | 2020-11-02 23:10 | NUR ---
MS RN NOTE UNSUCCESSFUL ATTEMPT INSERTING NGT X3 IN PATIENT WITH 3 RN'S. CHARGE NURSE AWARE. PATIENT MAINTAINS NPO AND ASPIRATION RISK PRECAUTIONS.
--- NOTE | 2020-11-02 23:30 | NUR ---
MS RN NOTE RN PLACED NGT TO R NARE. NO COILING. CHECKED PLACEMENT ON ABD WITH 2 RN'S; HEARD BUBBLES. STAT CXR ORDERED FOR PLACEMENT.
[2020-11-03] MEDS ORDERED: IV PREMIX NS +20MEQ KCL 1 L IV ONE (00:11)
[2020-11-03] MEDS: Potassium Chloride 20 MEQ in IV NS 0.9% 1,000 ML IV PRN ×2 (00:42→13:46)
--- NOTE | 2020-11-03 01:15 | NUR ---
MS RN NOTE PER CXR TECH RECOMMENDATIONS, UNABLE TO ADVANCE NGT 7-10CM. REMOVED NGT AND WILL REATTEMPT LATER.
[2020-11-03] MEDS ORDERED: NUTR150016 GT (03:03)
[2020-11-03] MEDS: LACTULOSE 10 G/15 ML UDC (PYXIS) GT SCH ×4 (06:00→18:00)
--- NOTE | 2020-11-03 06:10 | NUR ---
MS RN OPENING NOTE PATIENT A/OX3; MAKES NEEDS KNOWN WITH GESTURES. PATIENT ON ROOM AIR TOLERATING WELL WITH NO SOB. NO S/S OF DISCOMFORT AT THIS TIME. DRESSING TO CLOSED GTUBE SITE KEPT C/D/I. LAC #18G; K CL 20 MEQ NS @ 80ML/HR PATENT AND INTACT. SAFETY MEASURES IN PLACE: BED IN LOWEST LOCKED POSITION, SIDE RAILS UPX2, CALL LIGHT WITHIN EASY REACH, BED ALARMS ON. WILL ENDORSE PLAN OF CARE TO ONCOMING MORNING RN.
[2020-11-03 06:30] LABS: BASOPHILS % (AUTO) 0.5 % (0.0-2.0); EOSINOPHILS % (AUTO) 2.4 % (0.0-6.0); HEMATOCRIT 36 % (39-51); HEMOGLOBIN 11.8 g/dL (13.5-17.5); LYMPHOCYTES # (AUTO) 1.5 K/uL (0.8-4.8); LYMPHOCYTES % (AUTO) 27.4 % (20.0-44.0); MEAN CORPUSCULAR HGB CONC 33 g/dl (31.0-36.0); MEAN CORPUSCULAR VOLUME 96 fL (80-96); MONOCYTES # (AUTO) 0.5 K/uL (0.1-1.30); MONOCYTES % (AUTO) 8.8 % (2.0-12.0); NEUTROPHILS # (AUTO) 3.3 K/uL (1.8-8.9); NEUTROPHILS % (AUTO) 60.9 % (43.0-81.0); PLATELET COUNT (AUTO) 177 K/uL (150-450); WHITE BLOOD COUNT (AUTO) 5.4 K/uL (4.3-11.0)
[2020-11-03 07:15] LABS: THYROID STIMULATING HORMONE 1.502 uIU/mL (0.358-3.74)
[2020-11-03 07:21] LABS: ALBUMIN 3.1 g/dL (3.4-5.0); BILIRUBIN,TOTAL 0.6 mg/dL (0.2-1.0); CALCIUM, SERUM 8.5 mg/dL (8.5-10.1); CREATININE 0.7 mg/dL (0.6-1.3); MAGNESIUM 2.2 mg/dL (1.8-2.4); POTASSIUM 4.2 mmol/L (3.5-5.1); TOTAL PROTEIN, SERUM 7.2 g/dL (6.4-8.2)
--- NOTE | 2020-11-03 07:49 | NUR ---
MS RN OPENING NOTES RECEIVED PATIENT IN BED ASLEEP, EASY TO AROUSE. ON ROOM AIR, ALERT AND ORIENTED X 4, NON-VERBAL BUT RESPONDS WITH GESTURES. NO SIGNS OR SYMPTOMS OF DISTRESS NOTED. NO COMPLAINTS OF PAIN AT THIS TIME. BREATHING IS EVEN AND UNLABORED. IV ACCESS LAC#18G, PATENT AND INTACT WITH KCL 20MEQ NS @80MLS/HR. SAFETY MEASURES IN PLACE WITH BED LOCKED IN LOW POSITION, SIDE RAILS UP X 2. CALL LIGHT IS WITHIN REACH. WILL CONTINUE TO MONITOR THROUGHOUT SHIFT.
[2020-11-03 08:00] VITALS: BP 123/66
[2020-11-03] MEDS: PANTOPRAZOLE 40 MG VIAL IV SCH (08:57)
--- NOTE | 2020-11-03 10:50 | NUR ---
MS WATERMAN NOTES PATIENT WAS TRANSPORTED OUT OF UNIT WITH STABLE VITAL SIGNS VIA WHEELCHAIR TO RADIOLOGY FOR MRCP. Addendum: 11/03/20 at 1404 by DUY BENTON RN ERROR-WRONG PATIENT
[2020-11-03] MEDS ORDERED: ANESTHESIA TRAY IN PYXIS 1 EA TRAY MC ONE (13:00)
--- NOTE | 2020-11-03 14:04 | NUR ---
MS RN NOTES PATIENT ALERT AND ORIENTED X 3 NON VERBAL BUT RESPONDS WITH GESTURES. ABLE TO SIGN OWN CONSENT FOR PEG PLACEMENT.
[2020-11-03 16:00] VITALS: BP 120/59
--- NOTE | 2020-11-03 19:12 | NUR ---
MS RN CLOSING NOTES PATIENT IN BED AWAKE. ON ROOM AIR, ALERT AND ORIENTED X 3-4, NON-VERBAL BUT RESPONDS WITH GESTURES. NO SIGNS OR SYMPTOMS OF DISTRESS NOTED. NO COMPLAINTS OF PAIN AT THIS TIME. BREATHING IS EVEN AND UNLABORED. IV ACCESS LAC#18G, PATENT AND INTACT WITH KCL 20MEQ NS @80MLS/HR. SAFETY MEASURES IN PLACE WITH BED LOCKED IN LOW POSITION, SIDE RAILS UP X 2. CALL LIGHT IS WITHIN REACH. WILL ENDORSE CONTINUITY OF CARE TO NEXT NURSE.
--- NOTE | 2020-11-03 19:15 | NUR ---
MS RN OPENING NOTES: RECEIVED PT IN BED, AWAKE, NON VERBAL. COMMUNICATE BY GESTURES. CALL LIGHT WITHIN REACH. BED ALARM ON. BED IN LOWEST AND LOCKED POSITION. NO S/S OF DISTRESS NOTED. RIGHT ARM CONTRACTED. ON NPO.
[2020-11-03 20:00] VITALS: BP 129/72
[2020-11-03] MEDS: ENOXAPARIN SODIUM 40 MG/0.4 ML DISP.SYRIN SQ SCH (21:30)
[2020-11-03] MEDS: ATORVASTATIN 40 MG TABLET PO SCH (22:00)
[2020-11-04] MEDS: Potassium Chloride 20 MEQ in IV NS 0.9% 1,000 ML IV PRN ×2 (02:56→14:35)
[2020-11-04] MEDS: LACTULOSE 10 G/15 ML UDC (PYXIS) GT SCH ×4 (06:00→18:00)
[2020-11-04] MEDS: PANTOPRAZOLE 40 MG VIAL IV SCH (08:47)
--- NOTE | 2020-11-04 12:14 | NUR ---
MS RN NOTE OLLIE OF OR CALLED TO SAY THAT DR. WEINBERG WILL DO THE PEG PLACEMENT TOMORROW ORDERED. STILL TO SECURE CONSENT. PATIENT WILL BE PICKED UP AROUND [facility].
--- NOTE | 2020-11-04 13:10 | NUR ---
MS RN NOTE SPOKE WITH PATIENT'S DAUGHTER ASAMI . PER ASAMI THEY WILL CONSENT FOR PROCEDURE NECESSRY TO HAVE G-TURE PLACED AGAIN. CONSENT WAS ALSO SECURED FOR ANESTHESIAN AND POSSIBLE BLOOD TRANSFUSION. VERBAL CONSENT WITNESSED BY CHARGE NURSE CELESTE. WILL CONTINUE TO MONITOR PATIENT.
[2020-11-04 15:46] VITALS: BP 134/56
--- NOTE | 2020-11-04 18:50 | NUR ---
MS RN OPENING NOTES PATIENT IN ALERT AND MUMBLES SOUNDS. PATIENT UNABLE TO TALK DUE TO CVA BUT ABLE TO MAKE NEEDS KNOWN. ALSO ABLE TO DO SEVERAL THINGS LIKE READING WITH HIS LEFT ARM. 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 ABLE TO MAKE NEEDS KNOWN. ON ROOM AIR, NO SIGNS OR SYMPTOMS OF DISTRESS NOTED. NO COMPLAINTS OF PAIN AT THIS TIME. BREATHING IS EVEN AND UNLABORED. IV ACCESS LAC#18G, PATENT AND INTACT WITH KCL 20MEQ NS @80MLS/HR. PATIENT AGREED FOR PEG TUBE PLACEMENT ORDERED. CONSENTS SIGNED AND ATTACHED TO CHART. SAFETY MEASURES IN PLACE WITH BED LOCKED IN LOW POSITION, SIDE RAILS UP X 2. CALL LIGHT IS WITHIN REACH. PATIENT ENDORSED TO NEXT SHIFT FOR CONTINUITY OF CARE.
[2020-11-04 20:00] VITALS: BP 142/69
--- NOTE | 2020-11-04 20:00 | NUR ---
RN NOTE REPORT RECEIVED FROM DARREL WATERMAN, PATIENT IN BED, AO X 3-4, NON VERBAL, COMMUNICATES WITH GESTURES, COOPERATIVE, IN NO S/SX OF ACUTE DISTRESS AT THIS TIME. BREATHING IS EVEN AND UNLABORED, SATURATION AT 99% ON ROOM AIR, HR IS 66. NOTED IV SITE AT LAC 18G, PATENT AND FLUSHING WELL, NO S/S OF INFECTION OR INFILTRATION, WITH IV FLUID OF NS WITH 20 MEQ KCL INFUSING AT 80 ML/HR. NOTED GTUBE SITE CLOSED, DRESSING INTACT. NPO STATUS MAINTAINED, PENDING PEG TUBE PLACEMENT 0930 11/05/20, CONSENTS SIGNED AT CHART. SAFETY MEASURES IMPLEMENTED. PATIENT BED ALARM IS ON. HEAD OF BED ELEVATED. BED IS LOCKED, IN LOWEST POSITION AND SIDE RAILS UP. CALL LIGHT WITHIN REACH OF THE PATIENT. WILL CONTINUE TO MONITOR AND REASSESS FOR ANY CHANGES.
[2020-11-04] MEDS: ENOXAPARIN SODIUM 40 MG/0.4 ML DISP.SYRIN SQ SCH (21:11)
[2020-11-04] MEDS: ATORVASTATIN 40 MG TABLET PO SCH (21:38)
[2020-11-05] MEDS: Potassium Chloride 20 MEQ in IV NS 0.9% 1,000 ML IV PRN ×2 (04:17→18:53)
[2020-11-05] MEDS: LACTULOSE 10 G/15 ML UDC (PYXIS) GT SCH ×5 (05:15→23:34)
[2020-11-05 07:08] LABS: BASOPHILS % (AUTO) 0.3 % (0.0-2.0); EOSINOPHILS % (AUTO) 3.4 % (0.0-6.0); HEMATOCRIT 37 % (39-51); HEMOGLOBIN 12.1 g/dL (13.5-17.5); LYMPHOCYTES # (AUTO) 1.2 K/uL (0.8-4.8); LYMPHOCYTES % (AUTO) 17.5 % (20.0-44.0); MEAN CORPUSCULAR HGB CONC 33 g/dl (31.0-36.0); MEAN CORPUSCULAR VOLUME 97 fL (80-96); MONOCYTES # (AUTO) 0.5 K/uL (0.1-1.30); MONOCYTES % (AUTO) 7.6 % (2.0-12.0); NEUTROPHILS # (AUTO) 4.7 K/uL (1.8-8.9); NEUTROPHILS % (AUTO) 71.2 % (43.0-81.0); PLATELET COUNT (AUTO) 166 K/uL (150-450); RED BLOOD CELL COUNT(AUTO) 3.82 MIL/uL (4.5-6.0); WHITE BLOOD COUNT (AUTO) 6.6 K/uL (4.3-11.0)
[2020-11-05 07:31] LABS: CALCIUM, SERUM 8.5 mg/dL (8.5-10.1); CREATININE 0.6 mg/dL (0.6-1.3); MAGNESIUM 1.9 mg/dL (1.8-2.4); PHOSPHORUS 2.4 mg/dL (2.5-4.9)
[2020-11-05] MEDS: DEXTROSE 50%-WATER 50 ML DISP.SYRIN ONE ×2 (07:48→07:54)
--- NOTE | 2020-11-05 07:55 | NUR ---
MS RN OPENING NOTES RECEIVED PATIENT IN BED AWAKE. ALERT AND ORIENTED X3. PATIENT IS NON-VERBAL BUT RESPONDS WITH GESTURES. NO SIGNS OR SYMPTOMS OF DISTRESS NOTED. BP 140/72 HR 68. FINGERSTICK BS AT 43. CHARGE NURSE AND MD INFORMED WITH ORDER TO ADMINISTER DEXTROSE 50% IVP, ORDERS CARRIED OUT. PATIENT LEFT UNIT BY 2 OR NURSESAT 0750 TO OR FOR PEG PLACEMENT. OR NURSE BRI VERBALIZED THEY WILL REPEAT BS IN OPERATING ROOM. WILL CONTINUE TO MONITOR THROUGHOUT SHIFT.
[2020-11-05 08:00] VITALS: BP 115/77
[2020-11-05] MEDS ORDERED: DEXTROSE 50%-WATER 50 ML DISP.SYRIN IVP ONE (08:00)
[2020-11-05] MEDS: PANTOPRAZOLE 40 MG VIAL IV SCH (09:00)
[2020-11-05 09:30] VITALS: BP 77/115
[2020-11-05] MEDS ORDERED: K PHOS NEUTRAL 250 MG TABLET PO ONE (10:30)
[2020-11-05] MEDS ORDERED: JEVITY 1.2 CAL 1,000 ML BOTTLE GT PRN (12:30)
--- NOTE | 2020-11-05 13:52 | NUR ---
MS RN NOTES IV ACCESS ON LAC#18 INFILTRATED AND REMOVED. REINSERTED NEW IV ACCESS LFA#22 PATENT, INTACT AND FLUSHING WELL.
[2020-11-05 16:00] VITALS: BP 137/79
--- NOTE | 2020-11-05 19:05 | NUR ---
MS RN OPENING NOTES: RECEIVED PATIENT IN BED, AWAKE, A/O X3, NON VERBAL BUT ABLE TO COMMUNICATE HIS NEEDS THRU GESTURES. CALL LIGHT WITHIN REACH. BED ALARM ON. BED IN LOWEST AND LOCKED POSITION. NO S/S OF DISTRESS NOTED. WITH GT INTACT, NO BLEEDING NOTED. WITH TF JEVITY AT 25ML/HOUR. NO RESIDUAL NOTED. HOB ELEVATED AT ALL TIMES. HEELS OFFLOADED.
--- NOTE | 2020-11-05 19:14 | NUR ---
MS RN CLOSING NOTES PATIENT ALERT AND ORIENTED X 3 NON VERBAL BUT RESPONDS TO GESTURES. NO SIGNS OR SYMPTOMS OF DISTRESS NOTED. G-TUBE FLUSHING WELL, PATENT AND INTACT. IV Lac#22 INTACT AND RUNNING NS +20MEQ 80MLS/HR. SAFETY MEASURES IN PLACE WITH BED LOCKED AT LOWEST POSITION WITH SIDE RAILS UP X 2. CALL LIGHT WITHIN REACH. WILL ENDORSE CONTINUITY OF CARE TO NEXT SHIFT RN.
[2020-11-05 20:00] VITALS: BP 128/83
[2020-11-05] MEDS: ATORVASTATIN 40 MG TABLET PO SCH (22:34)
[2020-11-05] MEDS: ENOXAPARIN SODIUM 40 MG/0.4 ML DISP.SYRIN SQ SCH (22:34)
--- NOTE | 2020-11-06 00:58 | NUR ---
GT FEEDING JEVITY RATE INCREASED TO 30ML/HOUR. HOB ELEVATED AT ALL TIMES.
--- NOTE | 2020-11-06 04:49 | NUR ---
NO GT RESIDUAL NOTED. GT FEEDING RATE INCREASED TO 35ML/HOUR.
[2020-11-06] MEDS: LACTULOSE 10 G/15 ML UDC (PYXIS) GT SCH ×2 (05:45→11:58)
[2020-11-06] MEDS: Potassium Chloride 20 MEQ in IV NS 0.9% 1,000 ML IV PRN (06:53)
--- NOTE | 2020-11-06 07:01 | NUR ---
MS RN CLOSING NOTES: PATIENT IN BED, ASLEEP, EASILY AROUSABLE. NO S/S OF DISTRESS NOTED. CALL LIGHT WITHIN REACH. BED ALARM ON. BED IN LOWEST AND LOCKED POSITION. NO COMPLAIN OF PAIN. HOB ELEVATED AT ALL TIMES. WITH GT FEEDING RUNNING AT 35ML/HR, PATIENT TOLERATED, NO RESIDUAL NOTED. HEELS OFFLOADED. TURNED AND REPOSITIONED [id number]. GT INTACT, NO BLEEDING NOTED.
--- NOTE | 2020-11-06 07:32 | NUR ---
MS RN OPENING NOTES RECEIVED PATIENT IN BED AWAKE. ALERT AND ORIENTED X3. PATIENT IS NON-VERBAL. ABLE TO RESPOND WITH GESTURES. ON ROOM AIR TOLERATING WELL, NO SIGNS OR SYMPTOMS OF DISTRESS NOTED. NO SHORTNESS OF BREATH. CALL LIGHT AND TABLE IS WITHIN REACH. SAFETY MEASURES IN PLACE WITH BED AT LOWEST POSITION, LOCKED , BED ALARM ON WITH SIDE RAILS UP X2. WILL CONTINUE TO MONITOR THROUGHOUT SHIFT.
[2020-11-06 07:48] LABS: CALCIUM, SERUM 8.3 mg/dL (8.5-10.1); CREATININE 0.7 mg/dL (0.6-1.3); PHOSPHORUS 2.8 mg/dL (2.5-4.9); POTASSIUM 3.8 mmol/L (3.5-5.1)
[2020-11-06 08:00] VITALS: BP 129/74
[2020-11-06] MEDS: PANTOPRAZOLE 40 MG VIAL IV SCH (09:03)
[2020-11-06 16:00] VITALS: BP 145/72
--- NOTE | 2020-11-06 16:31 | NUR ---
MS SUPERVISOR POULTRY PROCESSING NOTES DISCHARGE ORDER RECEIVED FROM DR. JENNA HEBERT. PATIENT IS ALERT AND ORIENTED X3. NO SIGNS OR SYMPTOMS OF DISTRESS NOTED. NO COMPLAINTS OF PAIN. ORAL SUCTION DONE, G-TUBE SITE PATENT AND INTACT. DRESSING DRY AND CLEAN. WOUND PICTURES TAKEN PRIOR TO DISCHARGE AND FILED IN CHART. DISCHARGE SUMMARY REVIEWED AND SIGNED BY PATIENT AND SON ESCOBAR, VERBALIZED UNDERSTANDING. IV ACCESS AND WRIST BAND REMOVED. OBSERVED PATIENT EXIT THE UNIT INTO PRIVATE CAR WITH FAMILY.
== END 2020-11-06 16:30 | disposition home or self-care (01) | DRG 252 ==
LOC: ER 15:58 → MED 18:21
PROVIDERS: ADMIT Nurse Practitioner Acute Care; ATTEND Nurse Practitioner Acute Care
PROC: 0DH63UZ Insertion of Feeding Device into Stomach, Percutaneous Approach (ICD-10-PCS; principal; 2020-11-05)
DX: K94.23 Gastrostomy malfunction (principal); I69.351 Hemiplegia and hemiparesis following cerebral infarction affecting right dominant side; R13.10 Dysphagia, unspecified; D53.9 Nutritional anemia, unspecified; J44.9 Chronic obstructive pulmonary disease, unspecified; E86.0 Dehydration; N28.1 Cyst of kidney, acquired; E11.9 Type 2 diabetes mellitus without complications; E78.5 Hyperlipidemia, unspecified; D72.819 Decreased white blood cell count, unspecified; I10 Essential (primary) hypertension; I25.10 Atherosclerotic heart disease of native coronary artery without angina pectoris; Y83.3 Surgical operation with formation of external stoma as the cause of abnormal reaction of the patient, or of later complication, without mention of misadventure at the time of the procedure; Y92.9 Unspecified place or not applicable; K29.70 Gastritis, unspecified, without bleeding; K56.41 Fecal impaction; I70.0 Atherosclerosis of aorta; Z20.822 Contact with and (suspected) exposure to COVID-19; Z74.01 Bed confinement status; Z79.82 Long term (current) use of aspirin; Z79.899 Other long term (current) drug therapy; F03.90 Unspecified dementia, unspecified severity, without behavioral disturbance, psychotic disturbance, mood disturbance, and anxiety
CPT/HCPCS: 36415; 43246; 71045-TC; 80048-TC; 80053-TC; 80061-TC; 80076-TC; 81001; 82962-TC; 83540-TC; 83690-TC; 83735-TC; 84100-TC; 84443-TC; 85025-TC; 87081-TC; C9113; C9803; G0378; J0690; J1650; J2704; J3480; J3490; J7030; J7050; J7120; Q9967

== ENCOUNTER 2021-01-25 19:39 | Emergency (ER) | payer MEDICAID ==
[~2021-01-25] VITALS: Ht 165.1 cm; Wt 59.0 kg
[~2021-01-25 19:39] MED LIST changes: -ASPI-1169 PO; +ATOR80TA PO; -LEVO750T21 PO; +NUTR150016 GT
--- NOTE | 2021-01-25 20:18 | NUR ---
PATIENT CAME IN WITH SON C/O ABCESS TO UPPER BACK. C/O PAIN 08/20
[2021-01-25] MEDS ORDERED: LIDOCAINE 1%-EPI 1:100,000 20 ML VIAL ONE (20:37)
[2021-01-25] MEDS ORDERED: LIDOCAINE 1%-EPI 1:100,000 50 ML VIAL IJ ONE (21:00)
[2021-01-25] MEDS ORDERED: CEPH500C2 PO (21:06)
[2021-01-25] MEDS ORDERED: SULF1TAB48 PO (21:07)
[2021-01-25] MEDS ORDERED: CEPH250S PO (21:10)
--- NOTE | 2021-01-25 21:13 | NUR ---
DISCHARGE INSTRUCTIONS GIVEN TO PATIENT WITH RX.
[2021-01-25 21:25] VITALS: BP 118/66
== END 2021-01-25 21:20 | disposition home or self-care (01) ==
LOC: ER 19:39
DX: L02.11 Cutaneous abscess of neck (principal); I10 Essential (primary) hypertension; Z86.73 Personal history of transient ischemic attack (TIA), and cerebral infarction without residual deficits; Z98.890 Other specified postprocedural states; Z79.899 Other long term (current) drug therapy
CPT/HCPCS: 10060; 99283; A6407; J3490 ×2

== ENCOUNTER → 2021-01-27 | Emergency (ER) | payer MEDICAID ==
[~2021-01-27] VITALS: Ht 170.2 cm; Wt 72.6 kg
[~2021-01-27] MED LIST changes: +CEPH250S PO
[2021-01-27 20:23] VITALS: BP 99/57
--- NOTE | 2021-01-27 20:25 | NUR ---
RACHAEL FOR WOUND CHECK AT BACK OF NECK. SEEN AT [facility] DAYS AGO.
== END | disposition home or self-care (01) ==
LOC: ER 20:17
DX: L02.11 Cutaneous abscess of neck (principal); I10 Essential (primary) hypertension; Z86.73 Personal history of transient ischemic attack (TIA), and cerebral infarction without residual deficits; Z98.890 Other specified postprocedural states; Z79.899 Other long term (current) drug therapy

== ENCOUNTER 2023-04-08 12:52 | Emergency (ER) | payer MEDICAID ==
[~2023-04-08] VITALS: Ht 160 cm; Wt 55.8 kg
[2023-04-08] MEDS ORDERED: HYDROMORPHONE 1 MG/1 ML DISP.SYRIN IM ONE (16:00)
[2023-04-08] MEDS ORDERED: HYDROMORPHONE 1 MG/1 ML DISP.SYRIN ONE (16:12)
[2023-04-08] MEDS ORDERED: DIATR MEGLU/DIATRIZOATE SODIUM 30 ML BOTTLE (GASTROGRAPHIN) ONE (16:47)
[2023-04-08 18:39] VITALS: BP 151/89; TEMP 97.9; O2SAT 100
== END 2023-04-08 18:40 | disposition home or self-care (01) ==
LOC: ER 12:54
DX: K94.23 Gastrostomy malfunction (principal); I10 Essential (primary) hypertension; Z79.899 Other long term (current) drug therapy; Y83.9 Surgical procedure, unspecified as the cause of abnormal reaction of the patient, or of later complication, without mention of misadventure at the time of the procedure
CPT/HCPCS: 99284; 43762; 74018; 96372; J1170; Q9963

== ENCOUNTER 2023-07-22 02:11 | Inpatient (IN) | payer MEDICAID ==
[~2023-07-22] VITALS: Ht 162.6 cm; Wt 52.0 kg
[2023-07-22 02:50] LABS: BASOPHILS % (AUTO) 0.4 % (0.0-2.0); EOSINOPHILS # (AUTO) 0.3 K/uL (0.0-0.7); EOSINOPHILS % (AUTO) 2.7 % (0.0-6.0); HEMATOCRIT 42 % (39-51); HEMOGLOBIN 13.7 g/dL (13.5-17.5); LYMPHOCYTES # (AUTO) 2.2 K/uL (0.8-4.8); LYMPHOCYTES % (AUTO) 20.1 % (20.0-44.0); MEAN CORPUSCULAR HEMOGLOBIN 31 PG (26.0-33.0); MEAN CORPUSCULAR HGB CONC 33 g/dl (31.0-36.0); MEAN CORPUSCULAR VOLUME 95 fL (80-96); MONOCYTES # (AUTO) 0.7 K/uL (0.1-1.30); MONOCYTES % (AUTO) 6.3 % (2.0-12.0); NEUTROPHILS # (AUTO) 7.7 K/uL (1.8-8.9); NEUTROPHILS % (AUTO) 70.5 % (43.0-81.0); PLATELET COUNT (AUTO) 263 K/uL (150-450); RED BLOOD CELL COUNT(AUTO) 4.38 MIL/uL (4.5-6.0); RED CELL DISTRIBUTION WIDTH 13.5 % (11.5-15.0); WHITE BLOOD COUNT (AUTO) 10.9 K/uL (4.3-11.0)
[2023-07-22 02:59] LABS: CALCIUM, SERUM 9.3 mg/dL (8.5-10.1); CARBON DIOXIDE 28 mmol/L (21-32); CHLORIDE 99 mmol/L (98-107); CREATININE 0.9 mg/dL (0.6-1.3); GLUCOSE 147 mg/dL (74-106); POTASSIUM 4.4 mmol/L (3.5-5.1); SODIUM SERUM 136 mmol/L (136-145); UREA NITROGEN, BLOOD 25 mg/dL (7-18)
[2023-07-22 03:08] LABS: LACTIC ACID 2.2 mmol/L (0.4-2.0)
[2023-07-22 03:12] LABS: ALANINE AMINOTRANSFERASE 23 U/L (12-78); ALBUMIN 3.4 g/dL (3.4-5.0); ALKALINE PHOSPHATASE 99 U/L (46-116); ASPARTATE AMINOTRANSFERASE 27 U/L (15-37); BILIRUBIN,TOTAL 0.6 mg/dL (0.2-1.0); NT-PRO BNP 157 pg/mL (0-125); TOTAL PROTEIN, SERUM 8.2 g/dL (6.4-8.2)
[2023-07-22] MEDS: CEFTRIAXONE 1 G in IV D5W 50 ML IV ONE (03:17)
[2023-07-22] MEDS ORDERED: CEFTRIAXONE 1GM BAG (ER ONLY) 50 ML IV ONE (03:17)
[2023-07-22] MEDS ORDERED: MORPHINE SULFATE INJ 2 MG/ML DISP.SYRIN ONE (03:19)
[2023-07-22] MEDS: MORPHINE SULFATE INJ 2 MG/ML DISP.SYRIN IV ONE (03:20)
[2023-07-22 03:31] LABS: APPEARANCE,URINE CLEAR (CLEAR); BILIRUBIN,URINE NEGATIVE (NEGATIVE); BLOOD, URINE NEGATIVE Ery/uL (NEGATIVE); COLOR,URINE YELLOW (YELLOW); KETONES,URINE NEGATIVE (NEGATIVE); LEUKOCYTE ESTERASE ,URINE NEGATIVE (NEGATIVE); NITRITE, URINE NEGATIVE (NEGATIVE); PROTEIN,URINE NEGATIVE (NEGATIVE); UGLUCOSE NEGATIVE (NEGATIVE); UROBILINOGEN,URINE 0.2 EU/dL (0.2)
[2023-07-22 05:34] LABS: BILIRUBIN,DIRECT 0.1 mg/dL (0.0-0.2)
[2023-07-22 05:41] LABS: LACTIC ACID REFLEX 1.9 mmol/L (0.4-1.9)
[2023-07-22] MEDS: IV NS 0.9% 1,000 ML IV ONE ×2 (05:58)
[2023-07-22] MEDS ORDERED: NUTR250L50 GT (08:17)
[2023-07-22] MEDS ORDERED: MAGNESIUM HYDROXIDE 30 ML UDC PO PRN (10:00)
[2023-07-22] MEDS ORDERED: MAG HYDROX/AL HYDROX/SIMETH 30 ML UDC PO PRN (10:00)
[2023-07-22] MEDS ORDERED: ACETAMINOPHEN 325 MG TABLET PO PRN (10:00)
[2023-07-22] MEDS ORDERED: Z GUARD REMEDY 4 OZ OINT TP PRN (10:00)
[2023-07-22] MEDS ORDERED: ZOLPIDEM TARTRATE 5 MG TABLET PO PRN (10:00)
[2023-07-22] MEDS ORDERED: ONDANSETRON HCL/PF 4 MG/2 ML VIAL IVP PRN (10:00)
[2023-07-22 11:30] VITALS: BP 117/72; TEMP 98.2; O2SAT 95
[2023-07-22] MEDS ORDERED: MAGNESIUM HYDROXIDE 30 ML UDC GT PRN (13:12)
[2023-07-22] MEDS ORDERED: MAG HYDROX/AL HYDROX/SIMETH 30 ML UDC GT PRN (13:12)
[2023-07-22] MEDS ORDERED: ZOLPIDEM TARTRATE 5 MG TABLET GT PRN (13:13)
[2023-07-22] MEDS: GLUCERNA 1.2 1,000 ML BOTTLE NG PRN (13:59)
[2023-07-22] MEDS: ACETAMINOPHEN 650 MG/20.3 ML UDC GT PRN (14:01)
[2023-07-22 16:00] VITALS: BP 108/65; TEMP 97.5; O2SAT 96
[2023-07-22] MEDS ORDERED: [UNRECOGNIZED DRUG - OTHER] GT SCH (16:00)
[2023-07-22] MEDS: AZITHROMYCIN 500 MG in IV D5W 250 ML IV SCH (17:43)
[2023-07-22 20:00] VITALS: BP 107/64; TEMP 97.5; O2SAT 97
[2023-07-22] MEDS: CEFTRIAXONE 1 G in IV D5W 50 ML IV SCH (22:57)
[2023-07-23] VITALS: BP 105/70; TEMP 97.7; O2SAT 98
[2023-07-23 04:00] VITALS: BP 128/69; TEMP 97.8; O2SAT 97
[2023-07-23 07:18] LABS: BASOPHILS % (AUTO) 0.3 % (0.0-2.0); EOSINOPHILS # (AUTO) 0.2 K/uL (0.0-0.7); EOSINOPHILS % (AUTO) 2.8 % (0.0-6.0); HEMATOCRIT 34 % (39-51); HEMOGLOBIN 11.5 g/dL (13.5-17.5); LYMPHOCYTES # (AUTO) 1.7 K/uL (0.8-4.8); MEAN CORPUSCULAR HEMOGLOBIN 32 PG (26.0-33.0); MEAN CORPUSCULAR HGB CONC 34 g/dl (31.0-36.0); MEAN CORPUSCULAR VOLUME 95 fL (80-96); MONOCYTES # (AUTO) 0.5 K/uL (0.1-1.30); MONOCYTES % (AUTO) 7.2 % (2.0-12.0); NEUTROPHILS # (AUTO) 4.5 K/uL (1.8-8.9); NEUTROPHILS % (AUTO) 65.7 % (43.0-81.0); PLATELET COUNT (AUTO) 227 K/uL (150-450); RED BLOOD CELL COUNT(AUTO) 3.54 MIL/uL (4.5-6.0); RED CELL DISTRIBUTION WIDTH 13.2 % (11.5-15.0); WHITE BLOOD COUNT (AUTO) 6.9 K/uL (4.3-11.0)
[2023-07-23 07:28] LABS: CALCIUM, SERUM 8.5 mg/dL (8.5-10.1); CARBON DIOXIDE 25 mmol/L (21-32); CHLORIDE 105 mmol/L (98-107); CREATININE 0.7 mg/dL (0.6-1.3); GLUCOSE 102 mg/dL (74-106); MAGNESIUM 2.1 mg/dL (1.8-2.4); PHOSPHORUS 2.5 mg/dL (2.5-4.9); POTASSIUM 4.1 mmol/L (3.5-5.1); SODIUM SERUM 138 mmol/L (136-145); UREA NITROGEN, BLOOD 19 mg/dL (7-18)
[2023-07-23 08:00] VITALS: BP 123/66; TEMP 98.6; O2SAT 96
[2023-07-23 12:00] VITALS: BP 138/66; TEMP 97.9; O2SAT 97
[2023-07-23 20:00] VITALS: BP 126/64; TEMP 97.7; O2SAT 95
[2023-07-24 07:27] LABS: HEMOGLOBIN 10.8 g/dL (13.5-17.5)
[2023-07-24 08:00] VITALS: BP 122/72; TEMP 98.2; O2SAT 97
[2023-07-24 11:58] VITALS: BP 127/71; TEMP 98.2; O2SAT 96
[2023-07-24 16:00] VITALS: BP 137/69; TEMP 98.1; O2SAT 96
== END 2023-07-24 18:32 | DRG 384 ==
LOC: ER 02:13 → MED 10:57 → TELE 13:44
PROVIDERS: ADMIT Student in an Organized Health Care Education/Training Program
DX: S30.1XXA Contusion of abdominal wall, initial encounter (principal); E87.20 Acidosis, unspecified; I69.351 Hemiplegia and hemiparesis following cerebral infarction affecting right dominant side; E86.0 Dehydration; I10 Essential (primary) hypertension; R13.10 Dysphagia, unspecified; J98.11 Atelectasis; Z20.822 Contact with and (suspected) exposure to COVID-19; W19.XXXA Unspecified fall, initial encounter; Y93.9 Activity, unspecified; Y92.009 Unspecified place in unspecified non-institutional (private) residence as the place of occurrence of the external cause; Z93.1 Gastrostomy status; R47.01 Aphasia; J44.9 Chronic obstructive pulmonary disease, unspecified
CPT/HCPCS: 36415; 71045-TC; 71250-TC; 80048-TC; 80053-TC; 82248-TC; 83605-TC; 83735-TC; 83880; 84100-TC; 84443-TC; 84484-TC; 85025-TC; 85027-TC; 87040-TC; 87081-TC; 97110-TC; 97112-TC; 97530-TC; A4223; A4349; A6403; G0378; J0456; J0696; J2270; J7030; J7060

== ENCOUNTER 2023-12-02 22:48 | Emergency (ER) | payer MEDICAID ==
[~2023-12-02] VITALS: Ht 170.2 cm; Wt 63.5 kg
[~2023-12-02 22:48] MED LIST changes: -ATOR80TA PO; -CEPH250S PO; -NUTR150016 GT; +NUTR250L50 GT
[2023-12-02 23:04] VITALS: TEMP 98.2
[2023-12-02 23:19] VITALS: BP 129/85; O2SAT 97
[2023-12-02 23:43] LABS: BASOPHILS % (AUTO) 0.4 % (0.0-2.0); EOSINOPHILS # (AUTO) 0.4 K/uL (0.0-0.7); EOSINOPHILS % (AUTO) 5.2 % (0.0-6.0); HEMATOCRIT 41 % (39-51); HEMOGLOBIN 13.8 g/dL (13.5-17.5); LYMPHOCYTES # (AUTO) 1.8 K/uL (0.8-4.8); LYMPHOCYTES % (AUTO) 26.2 % (20.0-44.0); MEAN CORPUSCULAR HEMOGLOBIN 31 PG (26.0-33.0); MEAN CORPUSCULAR HGB CONC 34 g/dl (31.0-36.0); MEAN CORPUSCULAR VOLUME 92 fL (80-96); MONOCYTES # (AUTO) 0.6 K/uL (0.1-1.30); MONOCYTES % (AUTO) 8.3 % (2.0-12.0); NEUTROPHILS # (AUTO) 4.1 K/uL (1.8-8.9); NEUTROPHILS % (AUTO) 59.9 % (43.0-81.0); PLATELET COUNT (AUTO) 176 K/uL (150-450); RED CELL DISTRIBUTION WIDTH 15.3 % (11.5-15.0); WHITE BLOOD COUNT (AUTO) 6.8 K/uL (4.3-11.0)
[2023-12-02 23:46] LABS: APPEARANCE,URINE CLEAR (CLEAR); BILIRUBIN,URINE NEGATIVE (NEGATIVE); BLOOD, URINE NEGATIVE Ery/uL (NEGATIVE); COLOR,URINE YELLOW (YELLOW); KETONES,URINE NEGATIVE (NEGATIVE); LEUKOCYTE ESTERASE ,URINE NEGATIVE (NEGATIVE); NITRITE, URINE NEGATIVE (NEGATIVE); PROTEIN,URINE NEGATIVE (NEGATIVE); UGLUCOSE NEGATIVE (NEGATIVE); UROBILINOGEN,URINE 0.2 EU/dL (0.2)
[2023-12-03] LABS: CALCIUM, SERUM 8.9 mg/dL (8.5-10.1); CARBON DIOXIDE 23 mmol/L (21-32); CHLORIDE 103 mmol/L (98-107); CREATININE 0.6 mg/dL (0.6-1.3); GLUCOSE 90 mg/dL (74-106); POTASSIUM 4.1 mmol/L (3.5-5.1); SODIUM SERUM 136 mmol/L (136-145); UREA NITROGEN, BLOOD 16 mg/dL (7-18)
[2023-12-03 00:17] LABS: ALANINE AMINOTRANSFERASE 73 U/L (12-78); ALBUMIN 2.7 g/dL (3.4-5.0); ALKALINE PHOSPHATASE 110 U/L (46-116); ASPARTATE AMINOTRANSFERASE 70 U/L (15-37); BILIRUBIN,TOTAL 0.8 mg/dL (0.2-1.0); NT-PRO BNP 150 pg/mL (0-125); TOTAL PROTEIN, SERUM 7.4 g/dL (6.4-8.2)
== END 2023-12-03 03:04 ==
LOC: ER 22:50
DX: K94.23 Gastrostomy malfunction (principal); Z86.73 Personal history of transient ischemic attack (TIA), and cerebral infarction without residual deficits; I10 Essential (primary) hypertension; Z98.890 Other specified postprocedural states; Z79.899 Other long term (current) drug therapy; Y92.89 Other specified places as the place of occurrence of the external cause
CPT/HCPCS: 36415; 74018; 80053-TC; 83880; 84484-TC; 85025-TC